=== PATIENT | female | born 1945 | race Caucasian/White ===

== ENCOUNTER 2019-12-12 09:13 | Inpatient (IN) | payer BC, MEDICARE ==
[~2019-12-12 09:13] MED LIST: Acetaminophen 325 MG Tab PO SCH; Bisacodyl 5 MG Tab PO PRN; Cyclobenzaprine 10 MG Tab PO PRN; Lidocaine 1%/Sod Bicarbonate in NS 8.4% 1 ML Syringe IDERM PRN; Magnesium Hydroxide 400 MG/5 ML Susp 30 ML Cup PO PRN; Morphine 2 MG/ML Syringe IVPUSH PRN; Naloxone 0.4 MG/ML SDV IVPUSH PRN; Pregabalin 25 MG Cap PO SCH; Sennosides 8.6 MG Tab PO PRN; Sodium Chloride 0.9% 10 ML Syringe FLUSH PRN; oxyCODONE ER 10 MG TAB.ER PO SCH
[2019-12-12] MEDS ORDERED: EPINEPHrine 1 MG/ML SDV ONE (09:38)
[2019-12-12] MEDS ORDERED: Ropivacaine 0.5% 5 MG/ML 30 ML SDV ONE (09:39)
--- NOTE | 2019-12-12 09:42 | PCM.CONS ---
H&P History of Present Illness - General Date of Service: 12/12/19 Admit Problem/Dx: Admission Diagnosis/Problem Admission Diagnosis/Problem Osteoarthritis of knee Source of Information: Patient, Old Records, Provider, RN Notes Reviewed History Limitations: Reports: No Limitations - History of Present Illness Initial Comments - Free Text/Narative: Lila Fitzgerald is a 74 yo female patient of Dr. Grove who is post-operative day 0 of left TKA. Hospital medicine was consulted for post-operative medical care of the following listed medical conditions. At this time she is resting comfortably in bed. Pain is controlled. She denies any chest pain, shortness of breath, palpitations, nausea, or vomiting. She carries a history of: Rhinitis, lumbar spinal fusion, spinal stenosis, Spinal cord stimulator in place, chronic fatigue, elevated aPTT, Right BBB. She is a former smoker. She is a full code. Her primary care provider is Dr. Doyle. Left Knee Pain Score (Numeric/FACES): 7 - Related Data Allergies/Adverse Reactions: Allergies Allergy/AdvReac Type Severity Reaction Status Date / Time Bleach (Sodium Hypochlorite) Allergy Shortness Verified 12/12/19 14:22 of Breath perfume Allergy Shortness Verified 12/12/19 14:22 of Breath petrolatum,white Allergy Cannot Verified 12/12/19 14:22 Remember enviromental Allergy Difficulty Uncoded 09/14/19 13:39 Breathing new carpet Allergy Rash Uncoded 12/12/19 11:03 Home Medications: Home Meds Calcium Carbonate [Calcium] 600 mg PO DAILY 12/09/19 [History] Cholecalciferol (Vitamin D3) [Vitamin D3] 2,000 unit PO TID 12/09/19 [History] EPINEPHrine [Epipen] 1 injection SUBCUT ASDIRECTED PRN 12/09/19 [History] Folic Acid 1 mg PO DAILY 12/09/19 [History] L.acidoph,Paracasei, B.lactis [Probiotic] 1 cap PO DAILY 12/09/19 [History] Magnesium 400 mg PO DAILY 12/09/19 [History] Multivitamin [Multivitamins] 1 cap PO DAILY 12/09/19 [History] Olopatadine [Pataday 0.2% Ophth Soln] 1 drop EYEBOTH DAILY 12/09/19 [History] Potassium Gluconate [Potassium] 99 mg PO DAILY 12/09/19 [History] Vitamin B Complex 1 cap PO DAILY 12/09/19 [History] cycloSPORINE [Restasis] 1 drop EYEBOTH DAILY 12/09/19 [History] Crisaborole [Eucrisa] 1 applic TP BID PRN 12/12/19 [History] Estriol 0.05% 1 applic VAG MOTH 12/12/19 [History] Past Medical History HEENT History: Reports: Allergic Rhinitis Cardiovascular History: Reports: Hypertension Musculoskeletal History: Reports: Other (See Below) Other Musculoskeletal History: left knee pain Dermatologic History: Reports: Other (See Below) Other Dermatologic History: contact dermatitis - Infectious Disease History Infectious Disease History: Reports: None - Past Surgical History HEENT Surgical History: Reports: Tonsillectomy GI Surgical History: Reports: Colonoscopy Neurological Surgical History: Reports: Spinal Fusion Other Neurological Surgeries/Procedures: spinal stimulator Musculoskeletal Surgical History: Reports: Carpal Tunnel Social & Family History - Tobacco Use Smoking Status *Q: Former Smoker Used Tobacco, but Quit: Yes - Caffeine Use Caffeine Use: Reports: Coffee - Recreational Drug Use Recreational Drug Use: No Drug Use in Last 12 Months: No H&P Review of Systems - Review of Systems: Review Of Systems: See Below General: Reports: No Symptoms. Denies: Fever, Chills HEENT: Reports: No Symptoms. Denies: Headaches, Sore Throat Pulmonary: Reports: No Symptoms. Denies: Shortness of Breath, Wheezing, Pleuritic Chest Pain, Cough, Sputum Cardiovascular: Reports: No Symptoms. Denies: Chest Pain, Palpitations Gastrointestinal: Reports: No Symptoms. Denies: Abdominal Pain, Constipation, Diarrhea, Nausea, Vomiting Genitourinary: Reports: No Symptoms. Denies: Pain Musculoskeletal: Reports: Leg Pain (left ) Skin: Reports: No Symptoms. Denies: Cyanosis Psychiatric: Reports: No Symptoms. Denies: Confusion Neurological: Reports: No Symptoms, Difficulty Walking, Gait Disturbance Hematologic/Lymphatic: Reports: No Symptoms. Denies: Anemia Immunologic: Reports: No Symptoms. Denies: Anaphylaxis Exam - Exam Exam: See Below - Exam Quality Assessment: DVT Prophylaxis General: Alert, Oriented, Cooperative. No: Mild Distress HEENT: Conjunctiva Clear, EACs Clear, Hearing Intact, Mucosa Moist & [place], Nares Patent, Normal Nasal Septum, PERRLA Neck: Supple, Trachea Midline Lungs: Clear to Auscultation, Normal Respiratory Effort Cardiovascular: Regular Rate, Regular Rhythm GI/Abdominal Exam: Normal Bowel Sounds, Soft, Non-Tender, No Organomegaly (Female) Exam: Deferred Rectal (Female) Exam: Deferred Back Exam: Normal Inspection, Full Range of Motion Extremities: Normal Capillary Refill, Leg Pain, Limited Range of Motion, Other ( Bandage in place on left leg. Bandage is dry and intact. Cooling pack in place. ) Peripheral Pulses: 2+: Radial (L), Radial (R), Dorsalis Pedis (L), Dorsalis Pedis (R) Skin: Warm, Dry, Intact Neurological: Cranial Nerves Intact (Grossly) Neuro Extensive - Mental Status: Alert, Oriented x3, Normal Mood/Affect Consult PN Assessment/Plan POD#: 0 Procedures: Procedures ASSAY OF CREATININE (09/16/19) CT MAXILLOFACIAL W/O DYE (02/29/16) MR-STAPH DNA AMP PROBE (12/01/19) MRI CHEST SPINE W/O DYE (04/06/19) MRI LUMBAR SPINE W/O & W/DYE (09/16/19) MRI LUMBAR SPINE W/O DYE (01/09/16) ROUTINE VENIPUNCTURE (09/16/19) TISSUE EXAM BY PATHOLOGIST (05/29/15) (1) S/P total knee arthroplasty SNOMED Code(s): 0165499134056, 320078782, 4746341036256 Code(s): Z96.659 - PRESENCE OF UNSPECIFIED ARTIFICIAL KNEE JOINT Priority: High Current Visit: Yes Qualifiers: Laterality: left Qualified Code(s): Z96.652 - Presence of left artificial knee joint (2) Osteoarthritis SNOMED Code(s): 868248361 Code(s): M19.90 - UNSPECIFIED OSTEOARTHRITIS, UNSPECIFIED SITE Priority: High Current Visit: Yes Qualifiers: Osteoarthritis location: knee Osteoarthritis type: primary Laterality: left Qualified Code(s): M17.12 - Unilateral primary osteoarthritis, left knee (3) Rhinitis SNOMED Code(s): 33677330 Code(s): J31.0 - CHRONIC RHINITIS Priority: Low Current Visit: No Qualifiers: Rhinitis type: unspecified Qualified Code(s): J31.0 - Chronic rhinitis (4) History of lumbar spinal fusion SNOMED Code(s): 45816478748825 Code(s): Z98.1 - ARTHRODESIS STATUS Priority: Low Current Visit: No (5) Spinal stenosis SNOMED Code(s): 86865777 Code(s): M48.00 - SPINAL STENOSIS, SITE UNSPECIFIED Priority: Low Current Visit: Yes Qualifiers: Spinal region: unspecified Qualified Code(s): M48.00 - Spinal stenosis, site unspecified (6) Chronic fatigue SNOMED Code(s): 76212573 Code(s): R53.82 - CHRONIC FATIGUE, UNSPECIFIED Priority: Low Current Visit: No (7) Right bundle branch block SNOMED Code(s): 03809315 Code(s): I45.10 - UNSPECIFIED RIGHT BUNDLE-BRANCH BLOCK Priority: Medium Current Visit: No (8) Former smoker SNOMED Code(s): 6443200 Code(s): Z87.891 - PERSONAL HISTORY OF NICOTINE DEPENDENCE Priority: Low Current Visit: No (9) S/P insertion of spinal cord stimulator SNOMED Code(s): 636304136, 398649608 Code(s): Z96.89 - PRESENCE OF OTHER SPECIFIED FUNCTIONAL IMPLANTS Priority : Low Current Visit: No Problem List Initiated/Reviewed/Updated: Yes Plan: I/P: Acute: S/P left total knee arthroplasty - post-operative day 0 -DVT prophylaxis and pain management per primary care team -PT/OT -IS/RT -Monitor oxygen saturation -Titrate oxygen as needed -Home medications reviewed -Vital signs stable -Monitor labs -Pre-operative Hgb was 13.6 -Pre-operative GFR was 69 -Pre-operative 12-lead EKG shows RBBB Osteoarthritis of left knee -Pain management per primary care team Chronic: Rhinitis Lumbar spinal fusion Spinal stenosis Fatigue elevated aPTT RBBB Spinal cord stimulator in place Plan: CM for discharge planning GI prophylaxis Home medications as indicated Other orders as listed above Routine AM labs She is a full code. Her PCP is Dr. Doyle. Thank you for allowing us to participate in the care of this patient!! Requesting Provider: Dr. Grove Date Consult Requested: 12/12/19 Patient History Reviewed: Yes Admission H&P Reviewed: Yes
[2019-12-12] MEDS ORDERED: Propofol 200 MG/20 ML SDV ONE ×3 (09:51→12:05)
[2019-12-12] MEDS ORDERED: fentaNYL 100 MCG/2 ML SDV ONE ×3 (09:51→12:10)
[2019-12-12] MEDS ORDERED: Ketamine 500 mg/10 ML MDV ONE (09:51)
[2019-12-12] MEDS ORDERED: Midazolam 1 MG/ML 2 ML SDV ONE (09:51)
[2019-12-12] MEDS ORDERED: Lidocaine 1% 4 ML ONE ×2 (09:51→10:55)
[2019-12-12] MEDS ORDERED: Ondansetron 4 MG/2 ML SDV ONE (09:52)
[2019-12-12] MEDS ORDERED: ceFAZolin 1 GM Vial ONE (09:52)
[2019-12-12] MEDS ORDERED: Dexamethasone 4 MG/ML 5 ML MDV ONE (09:52)
[2019-12-12] MEDS ORDERED: Scopolamine 1.5 MG Transdermal Patch TRDERM SCH (10:00)
[2019-12-12] MEDS: Lactated Ringers 1,000 ML IV SCH ×2 (10:10→13:30)
[2019-12-12] MEDS ORDERED: Lidocaine 1% 2 ML ONE (10:10)
[2019-12-12] MEDS ORDERED: Ketorolac 30 MG/ML SDV ONE (10:46)
[2019-12-12] MEDS ORDERED: fentaNYL 100 MCG/2 ML SDV IVPUSH PRN (11:16)
[2019-12-12] MEDS ORDERED: Ondansetron 4 MG/2 ML SDV IVPUSH PRN (11:16)
[2019-12-12] MEDS ORDERED: HYDROmorphone 0.5 MG/0.5 ML Syringe IVPUSH PRN (11:16)
--- NOTE | 2019-12-12 11:21 | PCM.PREANE ---
Preanesthetic Assessment - Procedure Proposed Procedure: Left Total Knee Replacement - Anesthesia/Transfusion/Family Hx Anesthesia History: Prior Anesthesia Without Reaction Family History of Anesthesia Reaction: No - Review of Systems General: No Symptoms Pulmonary: No Symptoms Cardiovascular: No Symptoms Gastrointestinal: No Symptoms Neurological: Pre-Existing Deficit (Chronic Back Pain. Spinal Fusion with spinal cord stimulator in place. Turned off for procedure. ), Other (Spinal Fustion L2-S1) Other: Reports: None - Physical Assessment NPO Status Date: 12/11/19 NPO Status Time: 21:00 Vital Signs: Last Vital Signs Temp 36.8 C 12/12/19 09:15 Pulse 82 12/12/19 10:35 Resp 16 12/12/19 10:35 BP 118/57 L 12/12/19 10:35 Pulse Ox 98 12/12/19 10:35 Height: 1.68 m Weight: 69.4 kg ASA Class: 2 Mental Status: Alert & Oriented x3 Airway Class: Mallampati = 2 Dentition: Reports: Normal Dentition Thyro-Mental Finger Breadths: 2 Mouth Opening Finger Breadths: 2 ROM/Head Extension: Full Lungs: Clear to Auscultation, Normal Respiratory Effort Cardiovascular: Regular Rate, Regular Rhythm - Lab Values: Laboratory Last Values SARS Virus RNA (PCR) Negative (NEGATIVE) 12/08/19 09:38 - Allergies Allergies/Adverse Reactions: Allergies Allergy/AdvReac Type Severity Reaction Status Date / Time Bleach (Sodium Hypochlorite) Allergy Shortness Verified 12/12/19 11:03 of Breath perfume Allergy Shortness Verified 12/12/19 11:03 of Breath petrolatum,white Allergy Cannot Verified 12/12/19 11:03 Remember enviromental Allergy Difficulty Uncoded 09/14/19 13:39 Breathing new carpet Allergy Rash Uncoded 12/12/19 11:03 - Acknowledgements Anesthesia Type Planned: General Anesthesia, Regional Block (Adductor Canal Block) Pt an Appropriate Candidate for the Planned Anesthesia: Yes Alternatives and Risks of Anesthesia Discussed w Pt/Guardian: Yes Pt/Guardian Understands and Agrees with Anesthesia Plan: Yes PreAnesthesia Questionnaire HEENT History: Reports: Allergic Rhinitis Cardiovascular History: Reports: Hypertension Musculoskeletal History: Reports: Other (See Below) Other Musculoskeletal History: left knee pain Dermatologic History: Reports: Other (See Below) Other Dermatologic History: contact dermatitis - Infectious Disease History Infectious Disease History: Reports: None - Past Surgical History HEENT Surgical History: Reports: Tonsillectomy GI Surgical History: Reports: Colonoscopy Neurological Surgical History: Reports: Spinal Fusion Other Neurological Surgeries/Procedures: spinal stimulator Musculoskeletal Surgical History: Reports: Carpal Tunnel - SUBSTANCE USE Smoking Status *Q: Former Smoker Tobacco Use Within Last Twelve Months: No Recreational Drug Use History: No - HOME MEDS Home Medications: Home Meds Calcium Carbonate [Calcium] 600 mg PO DAILY 12/09/19 [History] Cholecalciferol (Vitamin D3) [Vitamin D3] 2,000 unit PO TID 12/09/19 [History] EPINEPHrine [Epipen] 1 injection SUBCUT ASDIRECTED PRN 12/09/19 [History] Folic Acid 1 mg PO DAILY 12/09/19 [History] L.acidoph,Paracasei, B.lactis [Probiotic] 1 cap PO DAILY 12/09/19 [History] Magnesium 400 mg PO DAILY 12/09/19 [History] Multivitamin [Multivitamins] 1 cap PO DAILY 12/09/19 [History] Olopatadine [Pataday 0.2% Ophth Soln] 1 drop EYEBOTH DAILY 12/09/19 [History] Potassium Gluconate [Potassium] 99 mg PO DAILY 12/09/19 [History] Vitamin B Complex 1 cap PO DAILY 12/09/19 [History] cycloSPORINE [Restasis] 1 drop EYEBOTH DAILY 12/09/19 [History] Crisaborole [Eucrisa] 1 applic TP BID PRN 12/12/19 [History] Estriol 0.05% 1 applic VAG MOTH 12/12/19 [History] - CURRENT (IN HOUSE) MEDS Current Meds: Current Medications Acetaminophen (Tylenol) 975 mg PO ONETIME [facility] Stop: 12/12/19 14:00 Last Admin: 12/12/19 10:07 Dose: 975 mg Bisacodyl (Dulcolax) 5 mg PO DAILY PRN PRN Reason: Constipation Morphine Sulfate 8 mg/Epinephrine HCl 0.3 mg/Cefuroxime Sodium 750 mg/Ketorolac Tromethamine 30 mg/Sodium Chloride 7.9 ml 0 mg .XX ASDIRECTED PRN PRN Reason: Pain Stop: 12/12/19 12:00 Cyclobenzaprine HCl (Flexeril) 5 mg PO TID PRN PRN Reason: Spasms Docusate Sodium (Colace) 100 mg PO BID [facility] Famotidine (Pepcid) 20 mg PO Q12H [facility] Lactated Ringer's (Ringers, Lactated) 1,000 mls @ 125 mls/hr IV ASDIRECTED [facility] Stop: 12/12/19 23:00 Last Admin: 12/12/19 10:10 Dose: 125 mls/hr Cefazolin Sodium/Dextrose 2 gm (/ Premix) 50 mls @ 100 mls/hr IV Q8H [facility] Stop: 12/13/19 10:29 Ketorolac Tromethamine (Toradol) 15 mg IVPUSH Q6H PRN PRN Reason: Pain Lidocaine/Sodium Bicarbonate (Buffered Lidocaine 1% In Ns 8.4%) 0.25 ml IDERM ONETIME PRN PRN Reason: Prior to IV Start Stop: 12/12/19 18:00 Last Admin: 12/12/19 10:10 Dose: 0.25 ml Magnesium Hydroxide (Milk Of Magnesia) 30 ml PO BID PRN PRN Reason: Constipation Morphine Sulfate (Morphine) 2 mg IVPUSH Q2H PRN PRN Reason: Breakthrough Pain Naloxone HCl (Narcan) 0.1 mg IVPUSH Q5M PRN PRN Reason: Oversedation Ondansetron HCl (Zofran) 4 mg IVPUSH Q6H PRN PRN Reason: Nausea/Vomiting Oxycodone HCl (Oxycontin) 10 mg PO ONETIME [facility] Stop: 12/12/19 14:00 Last Admin: 12/12/19 10:07 Dose: 10 mg Oxycodone/Acetaminophen (Percocet 325-5 Mg) 1 - 2 tab PO Q4H PRN PRN Reason: Pain Pregabalin (Lyrica) 50 mg PO ONETIME [facility] Stop: 12/12/19 14:00 Last Admin: 12/12/19 10:07 Dose: 50 mg Rivaroxaban (Xarelto) 10 mg PO DAILY [facility] Scopolamine (Transderm-Scop) 1.5 mg TRDERM ONETIME [facility] Senna (Senna) 8.6 mg PO BID PRN PRN Reason: Constipation Sodium Chloride (Saline Flush) 10 ml FLUSH ASDIRECTED PRN PRN Reason: Keep Vein Open Stop: 12/12/19 18:00 Discontinued Medications Bupivacaine HCl (Sensorcaine-Mpf 0.25%) Confirm Administered Dose 30 ml .ROUTE .[facility] Stop: 12/12/19 09:33 Cefazolin Sodium (Ancef) Confirm Administered Dose 2 gm .ROUTE .[facility] Stop: 12/12/19 09:33 Cefazolin Sodium (Ancef) Confirm Administered Dose 2 gm .ROUTE .[facility] Stop: 12/12/19 09:53 Dexamethasone (Dexamethasone) Confirm Administered Dose 20 mg .[address] .[facility] ONE Stop: 12/12/19 09:53 Epinephrine HCl (Adrenalin) Confirm Administered Dose 1 mg .R[address]TE .[facility] ONE Stop: 12/12/19 09:39 Fentanyl (Sublimaze) Confirm Administered Dose 100 mcg .[address] .[facility] ONE Stop: 12/12/19 09:52 Lidocaine HCl (Xylocaine-Mpf 1%) Confirm Administered Dose 4 mls @ as directed .ROUTE .[facility] ONE Stop: 12/12/19 09:52 Lidocaine HCl (Xylocaine-Mpf 1%) Confirm Administered Dose 2 mls @ as directed .ROUTE .[facility] ONE Stop: 12/12/19 10:11 Lidocaine HCl (Xylocaine-Mpf 1%) Confirm Administered Dose 4 mls @ as directed .ROUTE .[facility] ONE Stop: 12/12/19 10:56 Iodine (Iodine 2% Mild Tincture) Confirm Administered Dose 30 ml .ROUTE .[facility] ONE Stop: 12/12/19 09:33 Ketamine HCl (Ketalar) Confirm Administered Dose 500 mg .[address] .[facility] ONE Stop: 12/12/19 09:52 Ketorolac Tromethamine (Toradol) Confirm Administered Dose 30 mg .ROUTE .[facility] ONE Stop: 12/12/19 10:47 Midazolam HCl (Versed 1 Mg/Ml) Confirm Administered Dose 2 mg .ROUTE .[facility] ONE Stop: 12/12/19 09:52 Ondansetron HCl (Zofran) Confirm Administered Dose 4 mg .ROUTE .[facility] ONE Stop: 12/12/19 09:53 Propofol (Diprivan 20 Ml) Confirm Administered Dose 600 mg .[address] .[facility] ONE Stop: 12/12/19 09:52 Ropivacaine (Naropin 0.5%) Confirm Administered Dose 30 ml .ROUTE .[facility] ONE Stop: 12/12/19 09:40 Tranexamic Acid (Cyklokapron) Confirm Administered Dose 1,000 mg .ROUTE .[facility] ONE Stop: 12/12/19 09:33 Vancomycin HCl (Vancomycin) Confirm Administered Dose 1 gm .ROUTE .[facility] ONE Stop: 12/12/19 09:33
[2019-12-12] MEDS ORDERED: HYDROmorphone 1 MG/ML Syringe ONE ×2 (11:42→12:32)
[2019-12-12] MEDS: Iodine/Sodium Iodide 2% Tincture 30 ML Bottle ONE ×2 (11:51→12:00)
[2019-12-12] MEDS: ceFAZolin 1 GM Vial ONE ×2 (11:52→12:02)
[2019-12-12] MEDS: Bupivacaine 0.25% 10 ML SDV ONE ×3 (11:52→12:06)
[2019-12-12] MEDS: Vancomycin 1 GM SDV ONE ×4 (11:53→12:09)
[2019-12-12] MEDS: Morphine 8 MG, EPINEPHrine 0.3 MG, Cefuroxime 750 MG, Ketorolac 30 MG, Sodium Chloride ... PRN ×15 (11:53→12:06)
--- NOTE | 2019-12-12 12:50 | PCM.POSTAN ---
POST ANESTHESIA ASSESSMENT - MENTAL STATUS Mental Status: Oriented, Other (Drowsy) - VITAL SIGNS Vital Signs: Last Vital Signs Temp 36.8 C 12/12/19 09:15 Pulse 82 12/12/19 10:35 Resp 16 12/12/19 10:35 BP 118/57 L 12/12/19 10:35 Pulse Ox 98 12/12/19 10:35 1242 147/74 100 00 97.1F 94% - RESPIRATORY Respiratory Status: Respiratory Rate WNL, Airway Patent, O2 Saturation Stable, Supplemental Oxygen - CARDIOVASCULAR CV Status: Pulse Rate WNL, Blood Pressure Stable - GASTROINTESTINAL GI Status: No Symptoms - PAIN Pain Score: 0 - POST OP HYDRATION Hydration Status: Adequate & Stable
--- NOTE | 2019-12-12 12:51 | PCM.SN.2 ---
- Free Text/Narrative Note: Left selective femoral nerve block at the adductor canal for post-procedure pain control under US guidance requested by Dr. Grove. Date: 12/12/2019 Time Out: 1016 Start: 1022 End: 1031 Chart reviewed. Consent signed. Questions answered. Appropriate monitors applied. Time out performed. Left mid-shaft femur identified with ultrasound, scanning medially of femur, the femoral artery in the adductor canal visualized , and the femoral nerve located laterally to the artery. The skin was prepped lateral to the ultrasound probe with chlorahexadine times two. The 21ga 4 insulated block needle was inserted under direct ultrasound guidance into the adductor canal. 25mL of 0.5% ropivacaine with 1:200,000 epinephrine was injected circumferentially around the nerve with intermittent negative aspiration noted. Patient tolerated the procedure well. Sterile technique noted along with sterile gloves, mask, and sterile probe cover. See picture on progress note and vital signs on nurses notes. Block completed in PACU. Shonda Gonzalez CRNA
[2019-12-12] MEDS ORDERED: Lactated Ringers 1,000 ML ONE (13:04)
--- NOTE | 2019-12-12 13:44 | CR ---
Left knee: AP and lateral views left knee were obtained. Comparison: No previous knee exam. Knee prosthesis is seen. Components are aligned. Underlying bony structures are intact. Soft tissue air is noted from the surgical procedure. Impression: 1. Satisfactory postop radiographic appearance of recently placed left knee prosthesis. Diagnostic code #2 This report was dictated in MDT
[2019-12-12] MEDS ORDERED: EPINEPHRINE SUBCUT PRN (14:05)
[2019-12-12] MEDS ORDERED: CRISABOROLE TOP PRN (14:05)
[2019-12-12] MEDS: Cholecalciferol (Vitamin D3) 25 MCG Tab PO SCH ×2 (15:58→20:35)
[2019-12-12] MEDS ORDERED: Ketorolac 15 MG/ML SDV IVPUSH PRN (16:45)
[2019-12-12] MEDS: ceFAZolin 2 GM in Premix Bag 1 BAG IV SCH (17:25)
[2019-12-12] MEDS: Ondansetron 4 MG/2 ML SDV IVPUSH PRN (18:12)
[2019-12-12] MEDS: Famotidine 20 MG Tab PO SCH (20:34)
[2019-12-12] MEDS: Docusate Sodium 100 MG Cap PO SCH (20:34)
[2019-12-12] MEDS ORDERED: Magnesium Oxide 400 MG Tab PO SCH (21:00)
[2019-12-12] MEDS ORDERED: Calcium Carbonate 600 MG Tab PO SCH (21:00)
[2019-12-13] MEDS: ceFAZolin 2 GM in Premix Bag 1 BAG IV SCH ×2 (01:51→09:07)
[2019-12-13] MEDS: Acetaminophen/oxyCODONE 325-5 MG Tab PO PRN ×2 (02:05→08:58)
[2019-12-13] MEDS: Ondansetron 4 MG/2 ML SDV IVPUSH PRN ×2 (02:06→08:58)
--- NOTE | 2019-12-13 08:00 | PCM.CONSN ---
- General Info Date of Service: 12/13/19 Admission Dx/Problem (Free Text): Admission Diagnosis/Problem Admission Diagnosis/Problem Osteoarthritis of knee Functional Status: Reports: Pain Controlled, Tolerating Diet, Ambulating, Urinating, Incentive Spirometry. Denies: New Symptoms - Review of Systems General: Reports: No Symptoms. Denies: Fever, Weakness, Fatigue, Malaise, Chills HEENT: Reports: No Symptoms. Denies: Headaches, Sore Throat Pulmonary: Reports: No Symptoms. Denies: Shortness of Breath, Pleuritic Chest Pain, Cough, Sputum, Wheezing Cardiovascular: Reports: No Symptoms. Denies: Chest Pain, Palpitations, Dyspnea on Exertion Gastrointestinal: Reports: No Symptoms. Denies: Abdominal Pain, Constipation, Diarrhea, Nausea, Vomiting Genitourinary: Reports: No Symptoms. Denies: Pain Musculoskeletal: Reports: Leg Pain Skin: Reports: No Symptoms. Denies: Cyanosis Neurological: Reports: Difficulty Walking, Gait Disturbance. Denies: Confusion Psychiatric: Reports: No Symptoms - Patient Data Vitals - Most Recent: Last Vital Signs Temp 97.9 F 12/13/19 04:38 Pulse 74 12/13/19 04:38 Resp 18 12/13/19 04:38 BP 98/62 12/13/19 04:38 Pulse Ox 94 L 12/13/19 04:38 Weight - Most Recent: 153 lb 3.2 oz I&O - Last 24 Hours: Intake & Output 12/12/19 12/13/19 12/13/19 22:59 06:59 14:59 Intake Total 1550 200 Output Total 1140 900 Balance 410 -700 Lab Results Last 24 Hours: Laboratory Results - last 24 hr 12/13/19 12/13/19 Range/Units 04:38 04:38 WBC 9.06 (3.98-10.04) K/mm3 RBC 3.51 L (3.98-5.22) M/mm3 Hgb 10.9 L (11.2-15.7) gm/dl Hct 34.1 (34.1-44.9) % MCV 97.2 H (79.4-94.8) fl MCH 31.1 (25.6-32.2) pg MCHC 32.0 L (32.2-35.5) g/dl RDW Std Deviation 43.7 (36.4-46.3) fL Plt Count 294 (182-369) K/mm3 MPV 8.8 L (9.4-12.3) fl Sodium 135 L (136-145) mEq/L Potassium 3.8 (3.5-5.1) mEq/L Chloride 101 (98-107) mEq/L Carbon Dioxide 30 (21-32) mEq/L Anion Gap 7.8 (5-15) BUN 11 (7-18) mg/dL Creatinine 0.8 (0.55-1.02) mg/dL Est Cr Clr Drug Dosing 59.51 mL/min Estimated GFR (MDRD) > 60 (>60) mL/min BUN/Creatinine Ratio 13.8 L (14-18) Glucose 109 (83-115) mg/dL Calcium 8.3 L (8.5-10.1) mg/dL Total Bilirubin 0.6 (0.2-1.0) mg/dL AST 24 (15-37) U/L ALT 22 (14-59) U/L Alkaline Phosphatase 42 L (46-116) U/L Total Protein 5.5 L (6.4-8.2) g/dl Albumin 2.8 L (3.4-5.0) g/dl Globulin 2.7 gm/dL Albumin/Globulin Ratio 1.0 (1-2) Med Orders - Current: Current Medications Bisacodyl (Dulcolax) 5 mg PO DAILY PRN PRN Reason: Constipation Calcium Carbonate/Glycine (Calcium Carbonate) 600 mg PO BEDTIME [facility] Last Admin: 12/12/19 20:34 Dose: 600 mg Cholecalciferol (Vitamin D3) 50 mcg PO TID [facility] Last Admin: 12/12/19 20:35 Dose: 50 mcg Cyclobenzaprine HCl (Flexeril) 5 mg PO TID PRN PRN Reason: Spasms Docusate Sodium (Colace) 100 mg PO BID [facility] Last Admin: 12/12/19 20:34 Dose: 100 mg Famotidine (Pepcid) 20 mg PO Q12H [facility] Last Admin: 12/12/19 20:34 Dose: 20 mg Folic Acid (Folic Acid) 1 mg PO DAILY [facility] Cefazolin Sodium/Dextrose 2 gm (/ Premix) 50 mls @ 100 mls/hr IV Q8H [facility] Stop: 12/13/19 10:29 Last Admin: 12/13/19 01:51 Dose: 100 mls/hr Ketorolac Tromethamine (Toradol) 15 mg IVPUSH Q6H PRN PRN Reason: Pain Last Admin: 12/12/19 18:14 Dose: 15 mg Magnesium Hydroxide (Milk Of Magnesia) 30 ml PO BID PRN PRN Reason: Constipation Magnesium Oxide (Magnesium Oxide) 400 mg PO BEDTIME [facility] Last Admin: 12/12/19 20:35 Dose: 400 mg Miscellaneous Information (Remove Patch) 0 ea TRDERM ONETIME ONE Stop: 12/15/19 10:01 Morphine Sulfate (Morphine) 2 mg IVPUSH Q2H PRN PRN Reason: Breakthrough Pain Multivitamins (Thera) 1 each PO DAILY [facility] Naloxone HCl (Narcan) 0.1 mg IVPUSH Q5M PRN PRN Reason: Oversedation Ondansetron HCl (Zofran) 4 mg IVPUSH Q6H PRN PRN Reason: Nausea/Vomiting Last Admin: 12/13/19 02:06 Dose: 4 mg Oxycodone/Acetaminophen (Percocet 325-5 Mg) 1 - 2 tab PO Q4H PRN PRN Reason: Pain Last Admin: 12/13/19 02:05 Dose: 1 tab Crisaborole [Eucrisa (] Ointment) 0 each TOP BID PRN PRN Reason: Rash Cyclosporine ( (Restasis)) 0 each EYEBOTH DAILY [facility] Olopatadine (Pataday ()) 0 each EYEBOTH DAILY [facility] Rivaroxaban (Xarelto) 10 mg PO DAILY [facility] Saccharomyces Boulardii (Florastor) 250 mg PO DAILY [facility] Senna (Senna) 8.6 mg PO BID PRN PRN Reason: Constipation Vitamin B Complex/Vitamin C (Super B With Vitamin C) 1 cap PO DAILY [facility] Discontinued Medications Acetaminophen (Tylenol) 975 mg PO ONETIME [facility] Stop: 12/12/19 14:00 Last Admin: 12/12/19 10:07 Dose: 975 mg Bupivacaine HCl (Sensorcaine-Mpf 0.25%) Confirm Administered Dose 30 ml .ROUTE .STK-MED ONE Stop: 12/12/19 09:33 Last Admin: 12/12/19 12:06 Dose: 30 ml Cefazolin Sodium (Ancef) Confirm Administered Dose 2 gm .ROUTE .STK-MED ONE Stop: 12/12/19 09:33 Last Admin: 12/12/19 12:02 Dose: 2 gm Cefazolin Sodium (Ancef) Confirm Administered Dose 2 gm .ROUTE .STK-MED ONE Stop: 12/12/19 09:53 Morphine Sulfate 8 mg/Epinephrine HCl 0.3 mg/Cefuroxime Sodium 750 mg/Ketorolac Tromethamine 30 mg/Sodium Chloride 7.9 ml 0 mg .XX ASDIRECTED PRN PRN Reason: Pain Stop: 12/12/19 12:00 Last Admin: 12/12/19 12:06 Dose: 788.3 mg Dexamethasone (Dexamethasone) Confirm Administered Dose 20 mg .ROUTE .STK-MED ONE Stop: 12/12/19 09:53 Epinephrine HCl (Adrenalin) Confirm Administered Dose 1 mg .ROUTE .STK-MED ONE Stop: 12/12/19 09:39 Fentanyl (Sublimaze) Confirm Administered Dose 100 mcg .ROUTE .STK-MED ONE Stop: 12/12/19 09:52 Fentanyl (Sublimaze) 50 mcg IVPUSH Q5M PRN PRN Reason: Pain Stop: 12/12/19 13:00 Fentanyl (Sublimaze) Confirm Administered Dose 100 mcg .ROUTE .STK-MED ONE Stop: 12/12/19 11:32 Fentanyl (Sublimaze) Confirm Administered Dose 100 mcg .ROUTE .STK-MED ONE Stop: 12/12/19 12:11 Hydromorphone HCl (Dilaudid) 0.5 mg IVPUSH Q10M PRN PRN Reason: Pain (severe 7-10) Stop: 12/12/19 13:00 Hydromorphone HCl (Dilaudid) Confirm Administered Dose 1 mg .ROUTE .STK-MED ONE Stop: 12/12/19 11:43 Hydromorphone HCl (Dilaudid) Confirm Administered Dose 1 mg .ROUTE .STK-MED ONE Stop: 12/12/19 12:33 Lactated Ringer's (Ringers, Lactated) 1,000 mls @ 125 mls/hr IV ASDIRECTED [facility] Stop: 12/12/19 23:00 Last Admin: 12/12/19 13:30 Dose: 125 mls/hr Lidocaine HCl (Xylocaine-Mpf 1%) Confirm Administered Dose 4 mls @ as directed .ROUTE .STK-MED ONE Stop: 12/12/19 09:52 Lidocaine HCl (Xylocaine-Mpf 1%) Confirm Administered Dose 2 mls @ as directed .ROUTE .[facility] ONE Stop: 12/12/19 10:11 Lidocaine HCl (Xylocaine-Mpf 1%) Confirm Administered Dose 4 mls @ as directed .ROUTE .[facility] ONE Stop: 12/12/19 10:56 Lactated Ringer's (Ringers, Lactated) Confirm Administered Dose 1,000 mls @ as directed .ROUTE .[facility] ONE Stop: 12/12/19 13:05 Iodine (Iodine 2% Mild Tincture) Confirm Administered Dose 30 ml .ROUTE .[facility] ONE Stop: 12/12/19 09:33 Last Admin: 12/12/19 12:00 Dose: 18 ml Ketamine HCl (Ketalar) Confirm Administered Dose 500 mg .ROUTE .[facility] ONE Stop: 12/12/19 09:52 Ketorolac Tromethamine (Toradol) Confirm Administered Dose 30 mg .ROUTE .[facility] ONE Stop: 12/12/19 10:47 Lidocaine/Sodium Bicarbonate (Buffered Lidocaine 1% In Ns 8.4%) 0.25 ml IDERM ONETIME PRN PRN Reason: Prior to IV Start Stop: 12/12/19 18:00 Last Admin: 12/12/19 10:10 Dose: 0.25 ml Midazolam HCl (Versed 1 Mg/Ml) Confirm Administered Dose 2 mg .ROUTE .[facility] ONE Stop: 12/12/19 09:52 Non-Formulary Medication (Epinephrine [Epipen]) 1 injection SUBCUT ASDIRECTED PRN PRN Reason: allergic reaction Non-Formulary Medication (Potassium Gluconate [Potassium]) 99 mg PO DAILY [facility] Ondansetron HCl (Zofran) Confirm Administered Dose 4 mg .ROUTE .[facility] ONE Stop: 12/12/19 09:53 Ondansetron HCl (Zofran) 4 mg IVPUSH ONETIME PRN PRN Reason: Nausea/Vomiting Stop: 12/12/19 13:00 Oxycodone HCl (Oxycontin) 10 mg PO ONETIME [facility] Stop: 12/12/19 14:00 Last Admin: 12/12/19 10:07 Dose: 10 mg Pregabalin (Lyrica) 50 mg PO ONETIME [facility] Stop: 12/12/19 14:00 Last Admin: 12/12/19 10:07 Dose: 50 mg Propofol (Diprivan 20 Ml) Confirm Administered Dose 600 mg .ROUTE .STK-MED ONE Stop: 12/12/19 09:52 Propofol (Diprivan 20 Ml) Confirm Administered Dose 600 mg .ROUTE .STK-MED ONE Stop: 12/12/19 11:23 Propofol (Diprivan 20 Ml) Confirm Administered Dose 200 mg .ROUTE .STK-MED ONE Stop: 12/12/19 12:06 Ropivacaine (Naropin 0.5%) Confirm Administered Dose 30 ml .ROUTE .STK-MED ONE Stop: 12/12/19 09:40 Scopolamine (Transderm-Scop) 1.5 mg TRDERM ONETIME [facility] Last Admin: 12/12/19 10:35 Dose: 1.5 mg Sodium Chloride (Saline Flush) 10 ml FLUSH ASDIRECTED PRN PRN Reason: Keep Vein Open Stop: 12/12/19 18:00 Tranexamic Acid (Cyklokapron) Confirm Administered Dose 1,000 mg .ROUTE .STK- MED ONE Stop: 12/12/19 09:33 Last Admin: 12/12/19 12:13 Dose: 1,000 mg Vancomycin HCl (Vancomycin) Confirm Administered Dose 1 gm .ROUTE .STK-MED ONE Stop: 12/12/19 09:33 Last Admin: 12/12/19 12:09 Dose: 1 gm - Exam Quality Assessment: DVT Prophylaxis. No: Supplemental Oxygen, Urine Catheter General: Alert, Oriented, Cooperative, No Acute Distress HEENT: Pupils Equal, Pupils Reactive, Mucous Membr. Moist/[place] Neck: Supple, Trachea Midline Lungs: Clear to Auscultation, Normal Respiratory Effort Cardiovascular: Regular Rate, Regular Rhythm GI/Abdominal Exam: Normal Bowel Sounds, Soft, Non-Tender, No Distention (Female) Exam: Deferred Back Exam: Normal Inspection, Full Range of Motion Extremities: Non-Tender, Normal Capillary Refill, Leg Pain, Limited Range of Motion (Bandage in place on left leg. Bandage is dry and intact. Cooling pack in place. ), Other Peripheral Pulses: 2+: Radial (L), Radial (R), Dorsalis Pedis (L), Dorsalis Pedis (R) Skin: Warm, Dry, Intact Wound/Incisions: Dressing Dry and Intact, No Drainage Neurological: No New Focal Deficit Psy/Mental Status: Alert, Normal Affect, Normal Mood Sepsis Event Note - Evaluation Sepsis Screening Result: No Definite Risk - Focused Exam Vital Signs: Vital Signs Temp Pulse Resp BP Pulse Ox 12/13/19 04:38 97.9 F 74 18 98/62 94 L 12/13/19 02:16 97.7 F 62 18 113/67 93 L 12/12/19 20:55 98.1 F 82 18 113/62 93 L Date Exam was Performed: 12/13/19 Time Exam was Performed: 09:00 Consult PN Assessment/Plan POD#: 1 Procedures: Procedures ASSAY OF CREATININE (09/16/19) CT MAXILLOFACIAL W/O DYE (02/29/16) MR-STAPH DNA AMP PROBE (12/01/19) MRI CHEST SPINE W/O DYE (04/06/19) MRI LUMBAR SPINE W/O & W/DYE (09/16/19) MRI LUMBAR SPINE W/O DYE (01/09/16) ROUTINE VENIPUNCTURE (09/16/19) TISSUE EXAM BY PATHOLOGIST (05/29/15) (1) S/P total knee arthroplasty SNOMED Code(s): 1399028925956, 386953801, 5068529698201 Code(s): Z96.659 - PRESENCE OF UNSPECIFIED ARTIFICIAL KNEE JOINT Priority: High Current Visit: Yes Qualifiers: Laterality: left Qualified Code(s): Z96.652 - Presence of left artificial knee joint (2) Osteoarthritis SNOMED Code(s): 389901663 Code(s): M19.90 - UNSPECIFIED OSTEOARTHRITIS, UNSPECIFIED SITE Priority: High Current Visit: Yes Qualifiers: Osteoarthritis location: knee Osteoarthritis type: primary Laterality: left Qualified Code(s): M17.12 - Unilateral primary osteoarthritis, left knee (3) Rhinitis SNOMED Code(s): 74300760 Code(s): J31.0 - CHRONIC RHINITIS Priority: Low Current Visit: No Qualifiers: Rhinitis type: unspecified Qualified Code(s): J31.0 - Chronic rhinitis (4) History of lumbar spinal fusion SNOMED Code(s): 49475625863415 Code(s): Z98.1 - ARTHRODESIS STATUS Priority: Low Current Visit: No (5) Spinal stenosis SNOMED Code(s): 06804471 Code(s): M48.00 - SPINAL STENOSIS, SITE UNSPECIFIED Priority: Low Current Visit: Yes Qualifiers: Spinal region: unspecified Qualified Code(s): M48.00 - Spinal stenosis, site unspecified (6) Chronic fatigue SNOMED Code(s): 01492542 Code(s): R53.82 - CHRONIC FATIGUE, UNSPECIFIED Priority: Low Current Visit: No (7) Right bundle branch block SNOMED Code(s): 85062862 Code(s): I45.10 - UNSPECIFIED RIGHT BUNDLE-BRANCH BLOCK Priority: Medium Current Visit: No (8) Former smoker SNOMED Code(s): 8911909 Code(s): Z87.891 - PERSONAL HISTORY OF NICOTINE DEPENDENCE Priority: Low Current Visit: No (9) S/P insertion of spinal cord stimulator SNOMED Code(s): 343969256, 300742471 Code(s): Z96.89 - PRESENCE OF OTHER SPECIFIED FUNCTIONAL IMPLANTS Priority : Low Current Visit: No Problem List Initiated/Reviewed/Updated: Yes Plan: I/P: Acute: S/P left total knee arthroplasty - post-operative day 1 -DVT prophylaxis and pain management per primary care team -PT/OT -IS/RT -Monitor oxygen saturation -Titrate oxygen as needed -Home medications reviewed -Vital signs stable -Monitor labs -Pre-operative Hgb was 13.6; Now 10.9 -Pre-operative GFR was 69; Now >60 -Pre-operative 12-lead EKG shows RBBB Osteoarthritis of left knee -Pain management per primary care team Chronic: Rhinitis Lumbar spinal fusion Spinal stenosis Fatigue elevated aPTT RBBB Spinal cord stimulator in place Plan: CM for discharge planning GI prophylaxis Home medications as indicated Other orders as listed above Routine AM labs She is a full code. Her PCP is Dr. Doyle. From a hospitalist standpoint Lila is doing well. She has been up ambulating and working with therapies. She is off of oxygen and has urinated. Her labs and vital signs remain stable. Her pain is controlled. She will be cleared for discharge pending primary team and PT/OT agreement. Thank you for allowing us to participate in the care of this patient!!
--- NOTE | 2019-12-13 08:11 | PCM48HPAN ---
Post Anesthesia Note - EVALUATION WITHIN 48HRS OF ANESTHETIC Vital Signs in Normal Range: Yes Patient Participated in Evaluation: Yes Respiratory Function Stable: Yes Airway Patent: Yes Cardiovascular Function Stable: Yes Hydration Status Stable: Yes Pain Control Satisfactory: Yes Nausea and Vomiting Control Satisfactory: Yes Mental Status Recovered: Yes Vital Signs: Last Vital Signs Temp 36.6 C 12/13/19 04:38 Pulse 74 12/13/19 04:38 Resp 18 12/13/19 04:38 BP 98/62 12/13/19 04:38 Pulse Ox 94 L 12/13/19 04:38
--- NOTE | 2019-12-13 08:35 | PCM.SURGPN ---
- General Info Date of Service: 12/13/19 POD#: 1 Functional Status: Reports: Pain Controlled, Tolerating Diet, Ambulating, Urinating, Incentive Spirometry, Other (The pt states she noted no PONV with use of Zofran. She reports she is doing "good".) - Patient Data Vitals - Most Recent: Last Vital Signs Temp 97.9 F 12/13/19 04:38 Pulse 74 12/13/19 04:38 Resp 18 12/13/19 04:38 BP 98/62 12/13/19 04:38 Pulse Ox 94 L 12/13/19 04:38 Weight - Most Recent: 153 lb 3.2 oz I&O - Last 24 Hours: Intake & Output 12/12/19 12/13/19 12/13/19 22:59 06:59 14:59 Intake Total 1550 200 Output Total 1140 900 Balance 410 -700 Lab Results Last 24 Hrs: Laboratory Results - last 24 hr 12/13/19 12/13/19 Range/Units 04:38 04:38 WBC 9.06 (3.98-10.04) K/mm3 RBC 3.51 L (3.98-5.22) M/mm3 Hgb 10.9 L (11.2-15.7) gm/dl Hct 34.1 (34.1-44.9) % MCV 97.2 H (79.4-94.8) fl MCH 31.1 (25.6-32.2) pg MCHC 32.0 L (32.2-35.5) g/dl RDW Std Deviation 43.7 (36.4-46.3) fL Plt Count 294 (182-369) K/mm3 MPV 8.8 L (9.4-12.3) fl Sodium 135 L (136-145) mEq/L Potassium 3.8 (3.5-5.1) mEq/L Chloride 101 (98-107) mEq/L Carbon Dioxide 30 (21-32) mEq/L Anion Gap 7.8 (5-15) BUN 11 (7-18) mg/dL Creatinine 0.8 (0.55-1.02) mg/dL Est Cr Clr Drug Dosing 59.51 mL/min Estimated GFR (MDRD) > 60 (>60) mL/min BUN/Creatinine Ratio 13.8 L (14-18) Glucose 109 (83-115) mg/dL Calcium 8.3 L (8.5-10.1) mg/dL Total Bilirubin 0.6 (0.2-1.0) mg/dL AST 24 (15-37) U/L ALT 22 (14-59) U/L Alkaline Phosphatase 42 L (46-116) U/L Total Protein 5.5 L (6.4-8.2) g/dl Albumin 2.8 L (3.4-5.0) g/dl Globulin 2.7 gm/dL Albumin/Globulin Ratio 1.0 (1-2) Med Orders - Current: Current Medications Bisacodyl (Dulcolax) 5 mg PO DAILY PRN PRN Reason: Constipation Calcium Carbonate/Glycine (Calcium Carbonate) 600 mg PO BEDTIME [facility] Last Admin: 12/12/19 20:34 Dose: 600 mg Cholecalciferol (Vitamin D3) 50 mcg PO TID [facility] Last Admin: 12/12/19 20:35 Dose: 50 mcg Cyclobenzaprine HCl (Flexeril) 5 mg PO TID PRN PRN Reason: Spasms Docusate Sodium (Colace) 100 mg PO BID [facility] Last Admin: 12/12/19 20:34 Dose: 100 mg Famotidine (Pepcid) 20 mg PO Q12H [facility] Last Admin: 12/12/19 20:34 Dose: 20 mg Folic Acid (Folic Acid) 1 mg PO DAILY [facility] Cefazolin Sodium/Dextrose 2 gm (/ Premix) 50 mls @ 100 mls/hr IV Q8H [facility] Stop: 12/13/19 10:29 Last Admin: 12/13/19 01:51 Dose: 100 mls/hr Ketorolac Tromethamine (Toradol) 15 mg IVPUSH Q6H PRN PRN Reason: Pain Last Admin: 12/12/19 18:14 Dose: 15 mg Magnesium Hydroxide (Milk Of Magnesia) 30 ml PO BID PRN PRN Reason: Constipation Magnesium Oxide (Magnesium Oxide) 400 mg PO BEDTIME [facility] Last Admin: 12/12/19 20:35 Dose: 400 mg Miscellaneous Information (Remove Patch) 0 ea TRDERM ONETIME ONE Stop: 12/15/19 10:01 Morphine Sulfate (Morphine) 2 mg IVPUSH Q2H PRN PRN Reason: Breakthrough Pain Multivitamins (Thera) 1 each PO DAILY [facility] Naloxone HCl (Narcan) 0.1 mg IVPUSH Q5M PRN PRN Reason: Oversedation Ondansetron HCl (Zofran) 4 mg IVPUSH Q6H PRN PRN Reason: Nausea/Vomiting Last Admin: 12/13/19 02:06 Dose: 4 mg Oxycodone/Acetaminophen (Percocet 325-5 Mg) 1 - 2 tab PO Q4H PRN PRN Reason: Pain Last Admin: 12/13/19 02:05 Dose: 1 tab Crisaborole [Eucrisa (] Ointment) 0 each TOP BID PRN PRN Reason: Rash Cyclosporine ( (Restasis)) 0 each EYEBOTH DAILY [facility] Olopatadine (Pataday ()) 0 each EYEBOTH DAILY [facility] Rivaroxaban (Xarelto) 10 mg PO DAILY [facility] Saccharomyces Boulardii (Florastor) 250 mg PO DAILY [facility] Senna (Senna) 8.6 mg PO BID PRN PRN Reason: Constipation Vitamin B Complex/Vitamin C (Super B With Vitamin C) 1 cap PO DAILY [facility] Discontinued Medications Acetaminophen (Tylenol) 975 mg PO ONETIME A[facility]LIE Stop: 12/12/19 14:00 Last Admin: 12/12/19 10:07 Dose: 975 mg Bupivacaine HCl (Sensorcaine-Mpf 0.25%) Confirm Administered Dose 30 ml .ROUTE .STK-MED ONE Stop: 12/12/19 09:33 Last Admin: 12/12/19 12:06 Dose: 30 ml Cefazolin Sodium (Ancef) Confirm Administered Dose 2 gm .ROUTE .STK-MED ONE Stop: 12/12/19 09:33 Last Admin: 12/12/19 12:02 Dose: 2 gm Cefazolin Sodium (Ancef) Confirm Administered Dose 2 gm .ROUTE .STK-MED ONE Stop: 12/12/19 09:53 Morphine Sulfate 8 mg/Epinephrine HCl 0.3 mg/Cefuroxime Sodium 750 mg/Ketorolac Tromethamine 30 mg/Sodium Chloride 7.9 ml 0 mg .XX ASDIRECTED PRN PRN Reason: Pain Stop: 12/12/19 12:00 Last Admin: 12/12/19 12:06 Dose: 788.3 mg Dexamethasone (Dexamethasone) Confirm Administered Dose 20 mg .ROUTE .STK-MED ONE Stop: 12/12/19 09:53 Epinephrine HCl (Adrenalin) Confirm Administered Dose 1 mg .ROUTE .STK-MED ONE Stop: 12/12/19 09:39 Fentanyl (Sublimaze) Confirm Administered Dose 100 mcg .ROUTE .STK-MED ONE Stop: 12/12/19 09:52 Fentanyl (Sublimaze) 50 mcg IVPUSH Q5M PRN PRN Reason: Pain Stop: 12/12/19 13:00 Fentanyl (Sublimaze) Confirm Administered Dose 100 mcg .ROUTE .STK-MED ONE Stop: 12/12/19 11:32 Fentanyl (Sublimaze) Confirm Administered Dose 100 mcg .ROUTE .STK-MED ONE Stop: 12/12/19 12:11 Hydromorphone HCl (Dilaudid) 0.5 mg IVPUSH Q10M PRN PRN Reason: Pain (severe 7-10) Stop: 12/12/19 13:00 Hydromorphone HCl (Dilaudid) Confirm Administered Dose 1 mg .ROUTE .STK-MED ONE Stop: 12/12/19 11:43 Hydromorphone HCl (Dilaudid) Confirm Administered Dose 1 mg .ROUTE .STK-MED ONE Stop: 12/12/19 12:33 Lactated Ringer's (Ringers, Lactated) 1,000 mls @ 125 mls/hr IV ASDIRECTED ASHLIE Stop: 12/12/19 23:00 Last Admin: 12/12/19 13:30 Dose: 125 mls/hr Lidocaine HCl (Xylocaine-Mpf 1%) Confirm Administered Dose 4 mls @ as directed .ROUTE .STK-MED ONE Stop: 12/12/19 09:52 Lidocaine HCl (Xylocaine-Mpf 1%) Confirm Administered Dose 2 mls @ as directed .ROUTE .STK-MED ONE Stop: 12/12/19 10:11 Lidocaine HCl (Xylocaine-Mpf 1%) Confirm Administered Dose 4 mls @ as directed .ROUTE .STK-MED ONE Stop: 12/12/19 10:56 Lactated Ringer's (Ringers, Lactated) Confirm Administered Dose 1,000 mls @ as directed .ROUTE .STK-MED ONE Stop: 12/12/19 13:05 Iodine (Iodine 2% Mild Tincture) Confirm Administered Dose 30 ml .ROUTE .STK- MED ONE Stop: 12/12/19 09:33 Last Admin: 12/12/19 12:00 Dose: 18 ml Ketamine HCl (Ketalar) Confirm Administered Dose 500 mg .ROUTE .STK-MED ONE Stop: 12/12/19 09:52 Ketorolac Tromethamine (Toradol) Confirm Administered Dose 30 mg .ROUTE .STK- MED ONE Stop: 12/12/19 10:47 Lidocaine/Sodium Bicarbonate (Buffered Lidocaine 1% In Ns 8.4%) 0.25 ml IDERM ONETIME PRN PRN Reason: Prior to IV Start Stop: 12/12/19 18:00 Last Admin: 12/12/19 10:10 Dose: 0.25 ml Midazolam HCl (Versed 1 Mg/Ml) Confirm Administered Dose 2 mg .ROUTE .STK-MED ONE Stop: 12/12/19 09:52 Non-Formulary Medication (Epinephrine [Epipen]) 1 injection SUBCUT ASDIRECTED PRN PRN Reason: allergic reaction Non-Formulary Medication (Potassium Gluconate [Potassium]) 99 mg PO DAILY [facility] Ondansetron HCl (Zofran) Confirm Administered Dose 4 mg .ROUTE .STK-MED ONE Stop: 12/12/19 09:53 Ondansetron HCl (Zofran) 4 mg IVPUSH ONETIME PRN PRN Reason: Nausea/Vomiting Stop: 12/12/19 13:00 Oxycodone HCl (Oxycontin) 10 mg PO ONETIME [facility] Stop: 12/12/19 14:00 Last Admin: 12/12/19 10:07 Dose: 10 mg Pregabalin (Lyrica) 50 mg PO ONETIME [facility] Stop: 12/12/19 14:00 Last Admin: 12/12/19 10:07 Dose: 50 mg Propofol (Diprivan 20 Ml) Confirm Administered Dose 600 mg .ROUTE .STK-MED ONE Stop: 12/12/19 09:52 Propofol (Diprivan 20 Ml) Confirm Administered Dose 600 mg .ROUTE .STK-MED ONE Stop: 12/12/19 11:23 Propofol (Diprivan 20 Ml) Confirm Administered Dose 200 mg .ROUTE .STK-MED ONE Stop: 12/12/19 12:06 Ropivacaine (Naropin 0.5%) Confirm Administered Dose 30 ml .ROUTE .STK-MED ONE Stop: 12/12/19 09:40 Scopolamine (Transderm-Scop) 1.5 mg TRDERM ONETIME [facility] Last Admin: 12/12/19 10:35 Dose: 1.5 mg Sodium Chloride (Saline Flush) 10 ml FLUSH ASDIRECTED PRN PRN Reason: Keep Vein Open Stop: 12/12/19 18:00 Tranexamic Acid (Cyklokapron) Confirm Administered Dose 1,000 mg .ROUTE .STK- MED ONE Stop: 12/12/19 09:33 Last Admin: 12/12/19 12:13 Dose: 1,000 mg Vancomycin HCl (Vancomycin) Confirm Administered Dose 1 gm .ROUTE .STK-MED ONE Stop: 12/12/19 09:33 Last Admin: 12/12/19 12:09 Dose: 1 gm - Exam Wound/Incisions: Dressing Dry and Intact General: Alert, Cooperative, No Acute Distress Lungs: Normal Respiratory Effort Extremities: Other (Able to sense light touch at LLE. Jer's negative. ) Sepsis Event Note - Evaluation Sepsis Screening Result: No Definite Risk - Focused Exam Vital Signs: Vital Signs Temp Pulse Resp BP Pulse Ox 12/13/19 04:38 97.9 F 74 18 98/62 94 L 12/13/19 02:16 97.7 F 62 18 113/67 93 L 12/12/19 20:55 98.1 F 82 18 113/62 93 L Date Exam was Performed: 12/13/19 Time Exam was Performed: 08:32 - Problem List Review Problem List Initiated/Reviewed/Updated: Yes - My Orders Last 24 Hours: Active Orders 24 hr Category Date Time Status Communication Order [RC] ASDIRECTED Care 12/12/19 11:16 Active Cooling Warming Measures [RC] ASDIRECTED Care 12/12/19 11:16 Inactive Pulse Oximetry [RC] ASDIRECTED Care 12/12/19 11:16 Active Ready for Discharge [RC] PER UNIT ROUTINE Care 12/13/19 08:31 Ordered Regular Diet [DIET] Diet 12/12/19 Lunch Active Calcium Carbonate Med 12/12/19 21:00 Active 600 mg PO BEDTIME Cholecalciferol (Vitamin D3) [Vitamin D3] Med 12/12/19 15:00 Active 50 mcg PO TID Docusate Sodium [Colace] Med 12/12/19 21:00 Active 100 mg PO BID Famotidine [Pepcid] Med 12/12/19 21:00 Active 20 mg PO Q12H Folic Acid Med 12/13/19 09:00 Active 1 mg PO DAILY Ketorolac [Toradol] Med 12/12/19 16:45 Active 15 mg IVPUSH Q6H PRN Magnesium Oxide Med 12/12/19 21:00 Active 400 mg PO BEDTIME Multivitamins,Therapeutic [Thera] Med 12/13/19 09:00 Active 1 each PO DAILY Patient's Own Medication [Ptom] Med 12/13/19 09:00 Active 0 each EYEBOTH DAILY Patient's Own Medication [Ptom] Med 12/13/19 09:00 Active 0 each EYEBOTH DAILY Patient's Own Medication [Ptom] Med 12/12/19 14:05 Active 0 each TOP BID PRN Remove Patch Med 12/15/19 10:00 Once 0 ea TRDERM ONETIME ONE Rivaroxaban [Xarelto] Med 12/13/19 09:00 Pending 10 mg PO DAILY Saccharomyces Boulardii [Florastor] Med 12/13/19 09:00 Active 250 mg PO DAILY Vitamin B Complex with C [Super B With Vitamin C] Med 12/13/19 09:00 Active 1 cap PO DAILY ceFAZolin [Ancef] 2 gm Med 12/12/19 18:00 Active Premix Bag 1 bag IV Q8H Medication Orders Bisacodyl (Dulcolax) 5 mg PO DAILY PRN PRN Reason: Constipation Calcium Carbonate/Glycine (Calcium Carbonate) 600 mg PO BEDTIME [facility] Last Admin: 12/12/19 20:34 Dose: 600 mg Cholecalciferol (Vitamin D3) 50 mcg PO TID [facility] Last Admin: 12/12/19 20:35 Dose: 50 mcg Admin: 12/12/19 15:58 Dose: 50 mcg Cyclobenzaprine HCl (Flexeril) 5 mg PO TID PRN PRN Reason: Spasms Docusate Sodium (Colace) 100 mg PO BID [facility] Last Admin: 12/12/19 20:34 Dose: 100 mg Famotidine (Pepcid) 20 mg PO Q12H [facility] Last Admin: 12/12/19 20:34 Dose: 20 mg Folic Acid (Folic Acid) 1 mg PO DAILY [facility] Cefazolin Sodium/Dextrose 2 gm (/ Premix) 50 mls @ 100 mls/hr IV Q8H [facility] Stop: 12/13/19 10:29 Last Admin: 12/13/19 01:51 Dose: 100 mls/hr Infusion: 12/12/19 17:55 Dose: 100 mls/hr Admin: 12/12/19 17:25 Dose: 100 mls/hr Ketorolac Tromethamine (Toradol) 15 mg IVPUSH Q6H PRN PRN Reason: Pain Last Admin: 12/12/19 18:14 Dose: 15 mg Magnesium Hydroxide (Milk Of Magnesia) 30 ml PO BID PRN PRN Reason: Constipation Magnesium Oxide (Magnesium Oxide) 400 mg PO BEDTIME [facility] Last Admin: 12/12/19 20:35 Dose: 400 mg Miscellaneous Information (Remove Patch) 0 ea TRDERM ONETIME ONE Stop: 12/15/19 10:01 Morphine Sulfate (Morphine) 2 mg IVPUSH Q2H PRN PRN Reason: Breakthrough Pain Multivitamins (Thera) 1 each PO DAILY [facility] Naloxone HCl (Narcan) 0.1 mg IVPUSH Q5M PRN PRN Reason: Oversedation Ondansetron HCl (Zofran) 4 mg IVPUSH Q6H PRN PRN Reason: Nausea/Vomiting Last Admin: 12/13/19 02:06 Dose: 4 mg Admin: 12/12/19 18:12 Dose: 4 mg Oxycodone/Acetaminophen (Percocet 325-5 Mg) 1 - 2 tab PO Q4H PRN PRN Reason: Pain Last Admin: 12/13/19 02:05 Dose: 1 tab Crisaborole [Eucrisa (] Ointment) 0 each TOP BID PRN PRN Reason: Rash Cyclosporine ( (Restasis)) 0 each EYEBOTH DAILY [facility] Olopatadine (Pataday ()) 0 each EYEBOTH DAILY [facility] Rivaroxaban (Xarelto) 10 mg PO DAILY [facility] Saccharomyces Boulardii (Florastor) 250 mg PO DAILY [facility] Senna (Senna) 8.6 mg PO BID PRN PRN Reason: Constipation Vitamin B Complex/Vitamin C (Super B With Vitamin C) 1 cap PO DAILY ASHLIE - Assessment Assessment (Free Text/Narrative):: POD#1 - left TKA - Plan Plan (Free Text/Narrative):: 1. Hgb 10.9. 2. Discharge to home today if cleared by Hospitalist service and therapies. 3. Outpatient therapy. 4. Xarelto (family hx VTE), frequent mobility, TEDs. 5. Percocet, Zofran, cyclobenzaprine, Xarelto rx provided. The pt's case was discussed with Dr. Grove.
[2019-12-13] MEDS ORDERED: OLOPATADINE EYEBOTH SCH (09:00)
[2019-12-13] MEDS ORDERED: Multivitamins,Therapeutic Tab PO SCH (09:00)
[2019-12-13] MEDS ORDERED: Non-Formulary Medication 1 Each (Potassium Gluconate [Potassium] 99 MG) PO SCH (09:00)
[2019-12-13] MEDS ORDERED: Rivaroxaban 10 MG Tab PO SCH (09:00)
[2019-12-13] MEDS ORDERED: Folic Acid 1 MG Tab PO SCH (09:00)
[2019-12-13] MEDS ORDERED: Vitamin B Complex With Vitamin C Cap PO SCH (09:00)
[2019-12-13] MEDS ORDERED: Saccharomyces Boulardii (Probiotic) 250 MG Cap PO SCH (09:00)
[2019-12-13] MEDS: Docusate Sodium 100 MG Cap PO SCH (09:03)
[2019-12-13] MEDS: Famotidine 20 MG Tab PO SCH (09:03)
[2019-12-13] MEDS: Cholecalciferol (Vitamin D3) 25 MCG Tab PO SCH (09:04)
--- NOTE | 2019-12-15 10:43 | PCM.OPNOTE ---
- General Post-Op/Procedure Note Date of Surgery/Procedure: 12/12/19 Operative Procedure(s): left total knee arthroplasty Pre Op Diagnosis: left knee osteoarthrosis Post-Op Diagnosis: Same Anesthesia Technique: General LMA, MAC, Regional Block Primary Surgeon: Geronimo Grove Anesthesia Provider: Loyda Gonzalez Dye Worker: Lakisha Miles Dye Worker: Yumiko Ventura EBL in mLs: 200 Complications: None Condition: Good Free Text/Narrative:: 5 femur 4 tibia 9mm 29x9
--- NOTE | 2019-12-15 11:13 | OR ---
DATE OF OPERATION: 12/12/2019 SURGEON: Geronimo Grove MD OPERATION PERFORMED: Right total knee arthroplasty. PREOPERATIVE DIAGNOSIS: Right knee osteoarthrosis. POSTOPERATIVE DIAGNOSIS: Right knee osteoarthrosis. ANESTHESIA: General LMA, MAC with regional block. ANESTHESIA PROVIDER: Nicolasa Ferrell. [employer]OP SUPERVISOR: Lakisha Miles PA-C; and Yumiko Ventura LPN. ESTIMATED BLOOD LOSS: 200 mL. COMPLICATIONS: None. CONDITION: Stable. IMPLANTS: 1. [place] size 5 press-fit CR femur. 2. [place] size 4 press-fit [place] tibial base plate. 3. Radha size 4, 9 mm CS polyethylene insert. 4. Radha size 29 x 9 mm press fit asymmetric patella. DESCRIPTION OF PROCEDURE: The patient was identified in the preop holding area. Proper site was marked and identified by the surgeon. The patient was taken back to the operating theater. After adequate anesthesia, the patient's right lower extremity had a nonsterile tourniquet applied and it was sterilely prepped and draped in the usual sterile fashion. OR time-out was performed. The patient received 2 g IV Ancef. At this time, the right lower extremity was exsanguinated. Tourniquet was insufflated to 300 mmHg. Standard medial parapatellar incision was made. Medial parapatellar arthrotomy was created. Deep fibers of the MCL were raised and anterior fat pad was resected. At this time, attention was turned to the patella. Patella measured 22, it was resected to a 13 for a 29 x 9 mm patella. Drill holes were then drilled and found to be in adequate position. The drill was then drilled in the distal femur and the intramedullary distal femoral cutting guide was then placed. 8 mm was resected off the distal femur and was found to be an adequate resection. Sizing guide was placed. It was found to be a size 5 press-fit CR femur that was shown on the implant record at the beginning of this dictation. The drill holes were drilled for the epicondylar axis using [place] line and epicondyles as reference. At this time, the 4-in - 1 cutting block was placed. An anterior posterior and anterior and posterior chamfer cuts were then completed. Attention was turned to the tibia. The posterior medial lateral retractors were placed. The extramedullary tibial guide was placed. It was placed in the old footprint of the ACL. It was aligned with the center of the ankle and 0 degrees of slope, 9 mm was then resected off the unaffected side. There was found to be an acceptable reduction. At this time, posterior osteophytes were removed along with medial and lateral meniscus. A trial implant was placed with a correct sized tibia that was mentioned at the beginning of the dictation. A Radha size 4, 9 mm CS polyethylene insert was then placed. The patient's knee was brought through range of motion. The patella was tracking centrally and was stable to varus and valgus stress. Alignment was found to be roughly at 0 degrees. The tibia was stamped and drilled in proper rotation. The universal tibial base plate was impacted in place. Next, the [place] size 5 press-fit CR femur impacted into place and the [place] size 4, 9 mm CS polyethylene insert was placed. The patient's knee was brought into full extension. The patella was then press-fit in place at this time. Tourniquet was deflated. One liter dilute Betadine solution was irrigated through the knee along with 3 L of pulse lavage irrigation with Ancef. Periarticular injection was then completed. The patient's knee was brought through a range of motion. Knee was found to be stable to varus valgus stress, the patella was tracking centrally with full range of motion. At this time, a #2 barbed suture was used for closure of the medial parapatellar arthrotomy. Topical tranexamic acid was placed. 2-0 Vicryl was used subcutaneously, Prineo was used for the skin. The patient tolerated the procedure well and was sent to the PACU in stable condition. MMODAL /[id number] FERNANDO
--- NOTE | 2019-12-15 15:57 | PCM.DCSUM1 ---
Discharge Summary - Hospital Course Brief History: Lila is a 74 yo female who underwent left TKA with Dr. Grove on 12-12-2019. The procedure was completed under general anesthesia with adductor canal block. The pt tolerated the procedure well and was admitted to the Medical-Surgical Unit. Medical management was provided by the Hospitalist service. The pt's Hospital course was uneventful. The pt's Hgb on POD#1 was 10.9. On POD#1, Xarelto 10mg PO daily was initiated for VTE prophylaxis. SCDs and TEDs were also ordered. A Mepilex dressing was placed at the incision site at the time of surgery and remained clean and dry. The pt participated in P.T. and O.T. and progressed well. The pt was allowed to WBAT. On POD#1, the pt was deemed appropriate to discharge to home with her family. - Discharge Data Discharge Date: 12/13/19 Discharge Disposition: Home, Self-Care 01 Condition: Good - Referral to Home Health Primary Care Physician: Delgado Doyle MD - Patient Summary/Data Operative Procedure(s) Performed: left total knee arthroplasty Consults: Consultations 12/12/19 06:36 OT Evaluation and Treatment [CONS] Routine PT Evaluation and Treatment [CONS] Routine 12/12/19 06:37 Consult to Physician [CONS] Routine - Patient Instructions Diet: Usual Diet as Tolerated Activity: Apply Ice, As Tolerated, Elevate Extremity, Full Weight Bearing Driving: Do Not Drive Showering/Bathing: May Shower Wound/Incision Care: Keep Operative Site/Wound Site Clean and Dry, Do NOT Change Dressing Notify Provider of: Fever, Increased Pain, Swelling and Redness, Drainage, Nausea and/or Vomiting Other/Special Instructions: Please get up and moving around EVERY HOUR while awake. This helps to prevent blood clots. Please use your walker and have help with mobility as needed. Take a short walk in your home every hour while awake. Please take 325mg aspirin TWICE daily. The aspirin is being used for blood clot prevention and not for pain management so please do not miss a dose of the medication. You could use a medication like Pepcid or Tagamet and a medication like Prilosec or Nexium to protect your stomach while you are using the aspirin. At home, please complete the exercises that you learned during the Hospital stay. Schedule for physical therapy. Use the pain medication as needed. The medication may cause drowsiness and constipation. Contact your primary care provider for instructions if you are constipated. You may use a stool softener like docusate sodium or Colace 100mg twice daily and/or a laxative like Miralax daily for constipation. Increase your water and fiber intake while you are using the pain medication. Discontinue use of the pain medication as soon as able. Please do not use other medications that may cause drowsiness (other pain medications, anxiety pills, cold medications, sleeping pills, etc) while using the prescription pain medication. Do not use alcohol while using the pain medication. You may use acetaminophen or Tylenol for pain management, however, please ensure you are not using over 4000 mg or 4 grams of acetaminophen per day from all sources. Your pain medication has 325mg of acetaminophen per tablet. At this time, please do not use ibuprofen (Motrin, Advil) or naproxen (Aleve) for pain management as you are using the aspirin. When the aspirin course is completed in 4 to 6 weeks, you could use ibuprofen or naproxen for pain management (if this is allowed by your primary care provider). Wear the MARCIAL hose during the day and you may remove these at night. Elevate the limb to decrease swelling. Place ice to the area often. Place a towel between your skin and the blue pad. Use the incentive spirometer often. Take deep breaths throughout the day. Please keep the dressing in place until follow-up. Notify the Clinic if the dressing becomes saturated. Increase your protein intake while you are healing. If you have diabetes, please closely monitor your blood sugars and notify your primary care provider with abnormal values. Elevated blood sugars increases the risk of infection. Call the Clinic with questions or concerns - [phone]. - Discharge Plan *PRESCRIPTION DRUG MONITORING PROGRAM REVIEWED*: No *COPY OF PRESCRIPTION DRUG MONITORING REPORT IN PATIENT JAYLENE: No Prescriptions/Med Rec: Acetaminophen/oxyCODONE [Percocet 325-5 MG] 1 - 2 tab PO Q4H PRN #60 tablet PRN Reason: Pain Cyclobenzaprine [Flexeril] 5 mg PO BID PRN #20 tablet PRN Reason: Spasms Ondansetron [Zofran] 4 mg PO Q6H PRN #20 tab PRN Reason: Nausea Rivaroxaban [Xarelto] 10 mg PO DAILY #30 tablet Home Medications: Home Meds Calcium Carbonate [Calcium] 600 mg PO DAILY 12/09/19 [History] Cholecalciferol (Vitamin D3) [Vitamin D3] 2,000 unit PO TID 12/09/19 [History] EPINEPHrine [Epipen] 1 injection SUBCUT ASDIRECTED PRN 12/09/19 [History] Folic Acid 1 mg PO DAILY 12/09/19 [History] L.acidoph,Paracasei, B.lactis [Probiotic] 1 cap PO DAILY 12/09/19 [History] Magnesium 400 mg PO DAILY 12/09/19 [History] Multivitamin [Multivitamins] 1 cap PO DAILY 12/09/19 [History] Olopatadine [Pataday 0.2% Ophth Soln] 1 drop EYEBOTH DAILY 12/09/19 [History] Potassium Gluconate [Potassium] 99 mg PO DAILY 12/09/19 [History] Vitamin B Complex 1 cap PO DAILY 12/09/19 [History] cycloSPORINE [Restasis] 1 drop EYEBOTH DAILY 12/09/19 [History] Crisaborole [Eucrisa] 1 applic TP BID PRN 12/12/19 [History] Estriol 0.05% 1 applic VAG MOTH 12/12/19 [History] Acetaminophen/oxyCODONE [Percocet 325-5 MG] 1 - 2 tab PO Q4H PRN #60 tablet 09/01 [Rx] Cyclobenzaprine [Flexeril] 5 mg PO BID PRN #20 tablet 12/13/19 [Rx] Docusate Sodium [Colace] 100 mg PO BID cap 12/13/19 [Rx] Famotidine [Pepcid] 20 mg PO Q12H tablet 12/13/19 [Rx] Magnesium Hydroxide [Milk of Magnesia] 30 ml PO BID PRN cup 12/13/19 [Rx] Ondansetron [Zofran] 4 mg PO Q6H PRN #20 tab 12/13/19 [Rx] Rivaroxaban [Xarelto] 10 mg PO DAILY #30 tablet 12/13/19 [Rx] Sennosides [Senna] 8.6 mg PO BID PRN tablet 12/13/19 [Rx] bisacodyL [Dulcolax] 5 mg PO DAILY PRN tablet 12/13/19 [Rx] Patient Handouts: Rivaroxaban oral tablets Referrals: Lakisha Miles PA-C [Physician [facility]] - (Please follow up with Lakisha Miles PA-C on the following dates- December 19 at 10:15, December 26 at 1:00, and January 23 at 11:15.) - Discharge Summary/Plan Comment DC Time >30 min.: No - Patient Data Vitals - Most Recent: Last Vital Signs Temp 98.2 F 12/13/19 08:10 Pulse 67 12/13/19 08:10 Resp 14 12/13/19 08:10 BP 107/52 L 12/13/19 08:10 Pulse Ox 95 12/13/19 08:10 Weight - Most Recent: 153 lb 3.2 oz Med Orders - Current: Current Medications Discontinued Medications Acetaminophen (Tylenol) 975 mg PO ONETIME [facility] Stop: 12/12/19 14:00 Last Admin: 12/12/19 10:07 Dose: 975 mg Bisacodyl (Dulcolax) 5 mg PO DAILY PRN PRN Reason: Constipation Bupivacaine HCl (Sensorcaine-Mpf 0.25%) Confirm Administered Dose 30 ml .ROUTE .STK-MED ONE Stop: 12/12/19 09:33 Last Admin: 12/12/19 12:06 Dose: 30 ml Calcium Carbonate/Glycine (Calcium Carbonate) 600 mg PO BEDTIME [facility] Last Admin: 12/12/19 20:34 Dose: 600 mg Cefazolin Sodium (Ancef) Confirm Administered Dose 2 gm .ROUTE .STK-MED ONE Stop: 12/12/19 09:33 Last Admin: 12/12/19 12:02 Dose: 2 gm Cefazolin Sodium (Ancef) Confirm Administered Dose 2 gm .ROUTE .STK-MED ONE Stop: 12/12/19 09:53 Cholecalciferol (Vitamin D3) 50 mcg PO TID [facility] Last Admin: 12/13/19 09:04 Dose: 50 mcg Morphine Sulfate 8 mg/Epinephrine HCl 0.3 mg/Cefuroxime Sodium 750 mg/Ketorolac Tromethamine 30 mg/Sodium Chloride 7.9 ml 0 mg .XX ASDIRECTED PRN PRN Reason: Pain Stop: 12/12/19 12:00 Last Admin: 12/12/19 12:06 Dose: 788.3 mg Cyclobenzaprine HCl (Flexeril) 5 mg PO TID PRN PRN Reason: Spasms Dexamethasone (Dexamethasone) Confirm Administered Dose 20 mg .ROUTE .STK-MED ONE Stop: 12/12/19 09:53 Docusate Sodium (Colace) 100 mg PO BID [facility] Last Admin: 12/13/19 09:03 Dose: 100 mg Epinephrine HCl (Adrenalin) Confirm Administered Dose 1 mg .ROUTE .STK-MED ONE Stop: 12/12/19 09:39 Famotidine (Pepcid) 20 mg PO Q12H [facility] Last Admin: 12/13/19 09:03 Dose: 20 mg Fentanyl (Sublimaze) Confirm Administered Dose 100 mcg .ROUTE .STK-MED ONE Stop: 12/12/19 09:52 Fentanyl (Sublimaze) 50 mcg IVPUSH Q5M PRN PRN Reason: Pain Stop: 12/12/19 13:00 Fentanyl (Sublimaze) Confirm Administered Dose 100 mcg .ROUTE .STK-MED ONE Stop: 12/12/19 11:32 Fentanyl (Sublimaze) Confirm Administered Dose 100 mcg .ROUTE .STK-MED ONE Stop: 12/12/19 12:11 Folic Acid (Folic Acid) 1 mg PO DAILY [facility] Last Admin: 12/13/19 09:02 Dose: 1 mg Hydromorphone HCl (Dilaudid) 0.5 mg IVPUSH Q10M PRN PRN Reason: Pain (severe 7-10) Stop: 12/12/19 13:00 Hydromorphone HCl (Dilaudid) Confirm Administered Dose 1 mg .ROUTE .STK-MED ONE Stop: 12/12/19 11:43 Hydromorphone HCl (Dilaudid) Confirm Administered Dose 1 mg .ROUTE .STK-MED ONE Stop: 12/12/19 12:33 Lactated Ringer's (Ringers, Lactated) 1,000 mls @ 125 mls/hr IV ASDIRECTED [facility] Stop: 12/12/19 23:00 Last Admin: 12/12/19 13:30 Dose: 125 mls/hr Cefazolin Sodium/Dextrose 2 gm (/ Premix) 50 mls @ 100 mls/hr IV Q8H [facility] Stop: 12/13/19 10:29 Last Admin: 12/13/19 09:07 Dose: 100 mls/hr Lidocaine HCl (Xylocaine-Mpf 1%) Confirm Administered Dose 4 mls @ as directed .ROUTE .STK-MED ONE Stop: 12/12/19 09:52 Lidocaine HCl (Xylocaine-Mpf 1%) Confirm Administered Dose 2 mls @ as directed .ROUTE .STK-MED ONE Stop: 12/12/19 10:11 Lidocaine HCl (Xylocaine-Mpf 1%) Confirm Administered Dose 4 mls @ as directed .ROUTE .STK-MED ONE Stop: 12/12/19 10:56 Lactated Ringer's (Ringers, Lactated) Confirm Administered Dose 1,000 mls @ as directed .ROUTE .STK-MED ONE Stop: 12/12/19 13:05 Iodine (Iodine 2% Mild Tincture) Confirm Administered Dose 30 ml .ROUTE .ST- MED ONE Stop: 12/12/19 09:33 Last Admin: 12/12/19 12:00 Dose: 18 ml Ketamine HCl (Ketalar) Confirm Administered Dose 500 mg .ROUTE .ST-MED ONE Stop: 12/12/19 09:52 Ketorolac Tromethamine (Toradol) 15 mg IVPUSH Q6H PRN PRN Reason: Pain Last Admin: 12/12/19 18:14 Dose: 15 mg Ketorolac Tromethamine (Toradol) Confirm Administered Dose 30 mg .ROUTE .ST- MED ONE Stop: 12/12/19 10:47 Lidocaine/Sodium Bicarbonate (Buffered Lidocaine 1% In Ns 8.4%) 0.25 ml IDERM ONETIME PRN PRN Reason: Prior to IV Start Stop: 12/12/19 18:00 Last Admin: 12/12/19 10:10 Dose: 0.25 ml Magnesium Hydroxide (Milk Of Magnesia) 30 ml PO BID PRN PRN Reason: Constipation Magnesium Oxide (Magnesium Oxide) 400 mg PO BEDTIME [facility] Last Admin: 12/12/19 20:35 Dose: 400 mg Midazolam HCl (Versed 1 Mg/Ml) Confirm Administered Dose 2 mg .ROUTE .STK-MED ONE Stop: 12/12/19 09:52 Miscellaneous Information (Remove Patch) 0 ea TRDERM ONETIME ONE Stop: 12/15/19 10:01 Morphine Sulfate (Morphine) 2 mg IVPUSH Q2H PRN PRN Reason: Breakthrough Pain Multivitamins (Thera) 1 each PO DAILY [facility] Last Admin: 12/13/19 09:02 Dose: 1 each Naloxone HCl (Narcan) 0.1 mg IVPUSH Q5M PRN PRN Reason: Oversedation Non-Formulary Medication (Epinephrine [Epipen]) 1 injection SUBCUT ASDIRECTED PRN PRN Reason: allergic reaction Non-Formulary Medication (Potassium Gluconate [Potassium]) 99 mg PO DAILY [facility] Ondansetron HCl (Zofran) 4 mg IVPUSH Q6H PRN PRN Reason: Nausea/Vomiting Last Admin: 12/13/19 08:58 Dose: 4 mg Ondansetron HCl (Zofran) Confirm Administered Dose 4 mg .ROUTE .STK-MED ONE Stop: 12/12/19 09:53 Ondansetron HCl (Zofran) 4 mg IVPUSH ONETIME PRN PRN Reason: Nausea/Vomiting Stop: 12/12/19 13:00 Oxycodone HCl (Oxycontin) 10 mg PO ONETIME [facility] Stop: 12/12/19 14:00 Last Admin: 12/12/19 10:07 Dose: 10 mg Oxycodone/Acetaminophen (Percocet 325-5 Mg) 1 - 2 tab PO Q4H PRN PRN Reason: Pain Last Admin: 12/13/19 08:58 Dose: 1 tab Crisaborole [Eucrisa (] Ointment) 0 each TOP BID PRN PRN Reason: Rash Cyclosporine ( (Restasis)) 0 each EYEBOTH DAILY [facility] Last Admin: 12/13/19 09:05 Dose: Not Given Olopatadine (Pataday ()) 0 each EYEBOTH DAILY [facility] Last Admin: 12/13/19 09:06 Dose: Not Given Pregabalin (Lyrica) 50 mg PO ONETIME [facility] Stop: 12/12/19 14:00 Last Admin: 12/12/19 10:07 Dose: 50 mg Propofol (Diprivan 20 Ml) Confirm Administered Dose 600 mg .ROUTE .STK-MED ONE Stop: 12/12/19 09:52 Propofol (Diprivan 20 Ml) Confirm Administered Dose 600 mg .ROUTE .STK-MED ONE Stop: 12/12/19 11:23 Propofol (Diprivan 20 Ml) Confirm Administered Dose 200 mg .ROUTE .STK-MED ONE Stop: 12/12/19 12:06 Rivaroxaban (Xarelto) 10 mg PO DAILY [facility] Last Admin: 12/13/19 09:02 Dose: 10 mg Ropivacaine (Naropin 0.5%) Confirm Administered Dose 30 ml .ROUTE .STK-MED ONE Stop: 12/12/19 09:40 Saccharomyces Boulardii (Florastor) 250 mg PO DAILY [facility] Last Admin: 12/13/19 09:02 Dose: 250 mg Scopolamine (Transderm-Scop) 1.5 mg TRDERM ONETIME [facility] Last Admin: 12/12/19 10:35 Dose: 1.5 mg Senna (Senna) 8.6 mg PO BID PRN PRN Reason: Constipation Sodium Chloride (Saline Flush) 10 ml FLUSH ASDIRECTED PRN PRN Reason: Keep Vein Open Stop: 12/12/19 18:00 Tranexamic Acid (Cyklokapron) Confirm Administered Dose 1,000 mg .ROUTE .STK- MED ONE Stop: 12/12/19 09:33 Last Admin: 12/12/19 12:13 Dose: 1,000 mg Vancomycin HCl (Vancomycin) Confirm Administered Dose 1 gm .ROUTE .STK-MED ONE Stop: 12/12/19 09:33 Last Admin: 12/12/19 12:09 Dose: 1 gm Vitamin B Complex/Vitamin C (Super B With Vitamin C) 1 cap PO DAILY [facility] Last Admin: 12/13/19 09:02 Dose: 1 cap
== END 2019-12-13 12:25 | disposition home or self-care (01) | DRG 302 ==
LOC: JD.MS 09:13 → EDSTATUS 11:15
PROVIDERS: ADMIT Orthopaedic Surgery; ATTEND Orthopaedic Surgery
PROC: 0SRC0JA Replacement of Right Knee Joint with Synthetic Substitute, Uncemented, Open Approach (ICD-10-PCS; principal; 2019-12-12)
DX: M17.12 Unilateral primary osteoarthritis, left knee (principal); Z79.899 Other long term (current) drug therapy; Z79.01 Long term (current) use of anticoagulants; G89.29 Other chronic pain; Z88.8 Allergy status to other drugs, medicaments and biological substances; Z91.09 Other allergy status, other than to drugs and biological substances; Z98.890 Other specified postprocedural states; Z90.89 Acquired absence of other organs; Z98.1 Arthrodesis status; I10 Essential (primary) hypertension; Z87.891 Personal history of nicotine dependence; J31.0 Chronic rhinitis; M48.00 Spinal stenosis, site unspecified; I45.10 Unspecified right bundle-branch block; Z96.89 Presence of other specified functional implants
CPT/HCPCS: 01402; 36415; 64450; 73560-26-LT; 73560-LT; 80053; 85027; 97110-GP; 97116-GP; 97161-GP; 97165-GO; 97530-GP; 97535-GO; A9270-GY; C1776; J0171; J0690; J0697; J1100; J1170; J1885; J2001; J2250; J2270; J2405; J2704; J2795; J3010; J3370; J3490; J7120; U0002

== ENCOUNTER 2020-04-26 07:53 | Day surgery (SDC) | payer BC, MEDICARE ==
[~2020-04-26 07:53] MED LIST changes: -Bisacodyl 5 MG Tab PO PRN; -Cyclobenzaprine 10 MG Tab PO PRN; +Lactated Ringers 1,000 ML IV SCH; -Magnesium Hydroxide 400 MG/5 ML Susp 30 ML Cup PO PRN; -Morphine 2 MG/ML Syringe IVPUSH PRN; +Morphine 8 MG, EPINEPHrine 0.3 MG, Cefuroxime 750 MG, Ketorolac 30 MG, Sodium Chloride ... PRN; -Naloxone 0.4 MG/ML SDV IVPUSH PRN; +Scopolamine 1.5 MG Transdermal Patch TOP SCH; -Sennosides 8.6 MG Tab PO PRN
[2020-04-26] MEDS ORDERED: Ropivacaine 0.5% 5 MG/ML 30 ML SDV ONE (07:58)
[2020-04-26] MEDS ORDERED: EPINEPHrine 1 MG/ML SDV ONE (07:58)
[2020-04-26] MEDS ORDERED: fentaNYL 100 MCG/2 ML SDV ONE ×2 (08:04→09:28)
[2020-04-26] MEDS ORDERED: Midazolam 1 MG/ML 2 ML SDV ONE ×2 (08:04→09:53)
[2020-04-26] MEDS ORDERED: Ketamine 500 mg/10 ML MDV ONE (08:04)
[2020-04-26] MEDS ORDERED: Propofol 200 MG/20 ML SDV ONE ×2 (08:04→09:27)
[2020-04-26] MEDS ORDERED: Dexamethasone 4 MG/ML 5 ML MDV ONE (08:05)
[2020-04-26] MEDS ORDERED: Lidocaine 1% 4 ML ONE (08:05)
[2020-04-26] MEDS ORDERED: Ondansetron 4 MG/2 ML SDV ONE (08:05)
[2020-04-26] MEDS ORDERED: ceFAZolin 1 GM Vial ONE (08:13)
[2020-04-26] MEDS ORDERED: Lidocaine 1% 2 ML ONE (08:27)
[2020-04-26] MEDS: Bupivacaine 0.25% 10 ML SDV ONE ×2 (08:31→10:13)
[2020-04-26] MEDS: Vancomycin 1 GM SDV ONE ×2 (08:33→10:22)
--- NOTE | 2020-04-26 08:49 | PCM.PREANE ---
Preanesthetic Assessment - Procedure Proposed Procedure: Right Femoral Nerve Block in Adductor Canal with Ultrasound guidance for post-op pain relief. - Anesthesia/Transfusion/Family Hx Anesthesia History: Prior Anesthesia Without Reaction Family History of Anesthesia Reaction: No Transfusion History: No Prior Transfusion(s) - Review of Systems General: No Symptoms Pulmonary: No Symptoms Cardiovascular: No Symptoms Gastrointestinal: No Symptoms Neurological: Pre-Existing Deficit (Previous spinal fusion L2-S1 with spinal cord stimulator. Spinal cord stimulator turned off per patient. ) Other: Reports: None - Physical Assessment NPO Status Date: 04/25/20 NPO Status Time: 21:00 Weight: 62 kg ASA Class: 2 Mental Status: Alert & Oriented x3 Airway Class: Mallampati = 2 Dentition: Reports: Normal Dentition Thyro-Mental Finger Breadths: 2 Mouth Opening Finger Breadths: 2 ROM/Head Extension: Full Lungs: Clear to Auscultation, Normal Respiratory Effort Cardiovascular: Regular Rate, Regular Rhythm - Lab Values: Laboratory Last Values SARS-CoV-2 (PCR) Not detected (NOT DETECT) 04/23/20 08:30 MRSA (PCR) Negative 04/06/20 10:30 - Allergies Allergies/Adverse Reactions: Allergies Allergy/AdvReac Type Severity Reaction Status Date / Time Bleach (Sodium Hypochlorite) Allergy Shortness Verified 04/25/20 14:04 of Breath cigarette smoke Allergy Shortness Verified 04/25/20 14:04 of Breath perfume Allergy Shortness Verified 04/25/20 14:04 of Breath detergents Allergy Shortness Uncoded 04/25/20 14:04 of Breath - Anesthesia Plan Pre-Op Medication Ordered: Anxiolytic - Acknowledgements Anesthesia Type Planned: General Anesthesia (Preoperative Adductor Canal Block) Pt an Appropriate Candidate for the Planned Anesthesia: Yes Alternatives and Risks of Anesthesia Discussed w Pt/Guardian: Yes Pt/Guardian Understands and Agrees with Anesthesia Plan: Yes PreAnesthesia Questionnaire HEENT History: Reports: Allergic Rhinitis Cardiovascular History: Reports: Hypertension Respiratory History: Reports: None Gastrointestinal History: Reports: None Genitourinary History: Reports: None 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 Musculoskeletal History: Reports: Osteoarthritis, Other (See Below) Other Musculoskeletal History: left knee pain Neurological History: Reports: None Psychiatric History: Reports: None Endocrine/Metabolic History: Reports: None Hematologic History: Reports: None Immunologic History: Reports: None Oncologic (Cancer) History: Reports: None Dermatologic History: Reports: Other (See Below) Other Dermatologic History: contact dermatitis - Infectious Disease History Infectious Disease History: Reports: None - Past Surgical History HEENT Surgical History: Reports: Tonsillectomy Cardiovascular Surgical History: Reports: None Respiratory Surgical History: Reports: None GI Surgical History: Reports: Colonoscopy Female Surgical History: Reports: None Male Surgical History: Reports: None Endocrine Surgical History: Reports: None Neurological Surgical History: Reports: Spinal Fusion Other Neurological Surgeries/Procedures: spinal stimulator Musculoskeletal Surgical History: Reports: Carpal Tunnel Oncologic Surgical History: Reports: None Dermatological Surgical History: Reports: None - SUBSTANCE USE Tobacco Use Status *Q: Former Tobacco User Recreational Drug Use History: No - HOME MEDS Home Medications: Home Meds Calcium Carbonate [Calcium] 600 mg PO TID 12/09/19 [History] Cholecalciferol (Vitamin D3) [Vitamin D3] 2,000 unit PO TID 12/09/19 [History] EPINEPHrine [Epipen] 1 injection IM ONETIME 12/09/19 [History] Folic Acid 1 mg PO DAILY 12/09/19 [History] L.acidoph,Paracasei, B.lactis [Probiotic] 1 cap PO DAILY 12/09/19 [History] Magnesium 400 mg PO BID 12/09/19 [History] Multivitamin [Multivitamins] 1 cap PO DAILY 12/09/19 [History] Olopatadine [Pataday 0.2% Ophth Soln] 1 drop EYEBOTH DAILY 12/09/19 [History] Potassium Gluconate [Potassium] 99 mg PO DAILY 12/09/19 [History] Vitamin B Complex 1 cap PO DAILY 12/09/19 [History] cycloSPORINE [Restasis] 1 drop EYEBOTH DAILY 12/09/19 [History] Ascorbate Calcium [Vitamin C] 500 mg PO DAILY 04/25/20 [History] [place] 1 dose PO DAILY 04/25/20 [History] Ipratropium [Atrovent HFA] 1 dose INH TID PRN 04/25/20 [History] [place] 3,6,9 Combination No.7 [[place] Dha] 92 mg PO DAILY 04/25/20 [History] Zinc 50 mg PO DAILY 04/25/20 [History] estradioL [Estrace 0.01% Vaginal Crm] 1 dose VAG MOTH 04/25/20 [History] Ondansetron [Zofran] 4 mg PO Q6H PRN #30 tab 04/26/20 [Rx] Rivaroxaban [Xarelto] 10 mg PO DAILY #30 tab 04/26/20 [Rx] oxyCODONE 5 - 10 mg PO Q4H PRN #60 tab 04/26/20 [Rx] - CURRENT (IN HOUSE) MEDS Current Meds: Current Medications Acetaminophen (Tylenol) 975 mg PO ONETIME [facility] Stop: 04/26/20 12:00 Last Admin: 04/26/20 08:16 Dose: 975 mg Documented by: Morphine Sulfate 8 mg/Epinephrine HCl 0.3 mg/Cefuroxime Sodium 750 mg/Ketorolac Tromethamine 30 mg/Sodium Chloride 7.9 ml 0 mg .XX ASDIRECTED PRN PRN Reason: Pain Stop: 04/26/20 23:00 Lactated Ringer's (Ringers, Lactated) 1,000 mls @ 125 mls/hr IV ASDIRECTED [facility] Stop: 04/26/20 23:00 Lidocaine/Sodium Bicarbonate (Buffered Lidocaine 1% In Ns 8.4%) 0.25 ml IDERM ONETIME PRN PRN Reason: Prior to IV Start Stop: 04/26/20 23:00 Oxycodone HCl (Oxycontin) 10 mg PO ONETIME [facility] Stop: 04/26/20 12:00 Last Admin: 04/26/20 08:16 Dose: 10 mg Documented by: Pregabalin (Lyrica) 50 mg PO ONETIME [facility] Stop: 04/26/20 12:00 Last Admin: 04/26/20 08:16 Dose: 50 mg Documented by: Scopolamine (Transderm-Scop) 1.5 mg TOP ONETIME [facility] Stop: 04/26/20 18:00 Last Admin: 04/26/20 08:15 Dose: 1.5 mg Documented by: Sodium Chloride (Saline Flush) 10 ml FLUSH ASDIRECTED PRN PRN Reason: Keep Vein Open Stop: 04/26/20 23:00 Discontinued Medications Bupivacaine HCl (Sensorcaine-Mpf 0.25%) Confirm Administered Dose 30 ml .ROUTE .STK-MED ONE Stop: 04/26/20 08:01 Last Admin: 04/26/20 08:31 Dose: 30 ml Documented by: Cefazolin Sodium (Ancef) Confirm Administered Dose 2 gm .ROUTE .STK-MED ONE Stop: 04/26/20 08:14 Dexamethasone (Dexamethasone) Confirm Administered Dose 20 mg .ROUTE .STK-MED ONE Stop: 04/26/20 08:06 Epinephrine HCl (Adrenalin) Confirm Administered Dose 1 mg .ROUTE .STK-MED ONE Stop: 04/26/20 07:59 Fentanyl (Sublimaze) Confirm Administered Dose 100 mcg .ROUTE .STK-MED ONE Stop: 04/26/20 08:05 Lidocaine HCl (Xylocaine-Mpf 1%) Confirm Administered Dose 4 mls @ as directed .ROUTE .STK-MED ONE Stop: 04/26/20 08:06 Lidocaine HCl (Xylocaine-Mpf 1%) Confirm Administered Dose 2 mls @ as directed .ROUTE .STK-MED ONE Stop: 04/26/20 08:28 Ketamine HCl (Ketalar) Confirm Administered Dose 500 mg .ROUTE .STK-MED ONE Stop: 04/26/20 08:05 Midazolam HCl (Versed 1 Mg/Ml) Confirm Administered Dose 2 mg .ROUTE .STK-MED ONE Stop: 04/26/20 08:05 Ondansetron HCl (Zofran) Confirm Administered Dose 4 mg .ROUTE .STK-MED ONE Stop: 04/26/20 08:06 Propofol (Diprivan 20 Ml) Confirm Administered Dose 600 mg .ROUTE .STK-MED ONE Stop: 04/26/20 08:05 Ropivacaine (Naropin 0.5%) Confirm Administered Dose 30 ml .ROUTE .STK-MED ONE Stop: 04/26/20 07:59 Tranexamic Acid (Cyklokapron) Confirm Administered Dose 1,000 mg .ROUTE .STK-MED ONE Stop: 04/26/20 08:01 Last Admin: 04/26/20 08:32 Dose: 1,000 mg Documented by: Vancomycin HCl (Vancomycin) Confirm Administered Dose 1 gm .ROUTE .STK-MED ONE Stop: 04/26/20 08:01 Last Admin: 04/26/20 08:33 Dose: 1 gm Documented by:
--- NOTE | 2020-04-26 08:53 | PCM.SN.2 ---
- Free Text/Narrative Note: Left selective femoral nerve block at the adductor canal for post-procedure pain control under US guidance requested by Dr. Grove. Time Out: 828 Start: 831 End: 835 Chart reviewed. Consent signed. Questions answered. Appropriate monitors applied. Time out performed. Left mid-shaft femur identified with ultrasound, scanning medially of femur, the femoral artery in the adductor canal visualized, and the femoral nerve located laterally to the artery. The skin was prepped lateral to the ultrasound probe with chlorahexadine times two. The 21ga 4 insulated block needle was inserted under direct ultrasound guidance into the adductor canal. 25mL of 0.5% ropivacaine with 1:200,000 epinephrine was injected circumferentially around the nerve with intermittent negative aspiration noted. Patient tolerated the procedure well. Sterile technique noted along with sterile gloves, mask, and sterile probe cover. See picture on progress note and vital signs on nurses notes. Block completed preoperatively. Shonda Gonzalez RADIOLOGY THERAPIST
[2020-04-26] MEDS ORDERED: HYDROmorphone 0.5 MG/0.5 ML Syringe ONE ×2 (09:24→10:32)
[2020-04-26] MEDS ORDERED: fentaNYL 100 MCG/2 ML SDV IVPUSH PRN (10:02)
[2020-04-26] MEDS ORDERED: HYDROmorphone 0.5 MG/0.5 ML Syringe IVPUSH PRN (10:02)
[2020-04-26] MEDS ORDERED: Ondansetron 4 MG/2 ML SDV IVPUSH PRN (10:02)
--- NOTE | 2020-04-26 10:55 | PCM.POSTAN ---
POST ANESTHESIA ASSESSMENT - MENTAL STATUS Mental Status: Alert, Oriented - VITAL SIGNS Vital Signs: Last Vital Signs Temp 36.4 C 04/26/20 10:45 Pulse 76 04/26/20 10:45 Resp 14 04/26/20 10:45 BP 119/65 04/26/20 10:45 Pulse Ox 96 04/26/20 10:45 - RESPIRATORY Respiratory Status: Respiratory Rate WNL, Airway Patent, O2 Saturation Stable, Supplemental Oxygen - CARDIOVASCULAR CV Status: Pulse Rate WNL, Blood Pressure Stable - GASTROINTESTINAL GI Status: No Symptoms - PAIN Pain Score: 0 - POST OP HYDRATION Hydration Status: Adequate & Stable
[2020-04-26] MEDS ORDERED: Ketorolac 15 MG/ML SDV ONE (10:58)
[2020-04-26] MEDS ORDERED: oxyCODONE 5 MG Tab PO SCH (11:45)
--- NOTE | 2020-04-26 14:57 | PCM48HPAN ---
Post Anesthesia Note - EVALUATION WITHIN 48HRS OF ANESTHETIC Vital Signs in Normal Range: Yes Patient Participated in Evaluation: No Respiratory Function Stable: Yes Airway Patent: Yes Cardiovascular Function Stable: Yes Hydration Status Stable: Yes Pain Control Satisfactory: Yes Nausea and Vomiting Control Satisfactory: Yes Mental Status Recovered: Yes Vital Signs: Last Vital Signs Temp 36.6 C 04/26/20 12:30 Pulse 66 04/26/20 14:00 Resp 18 04/26/20 14:00 BP 108/71 04/26/20 14:00 Pulse Ox 96 04/26/20 14:00 - COMMENTS/OBSERVATIONS Free Text/Narrative:: Patient had some nausea but has since resolved. Baseline anxiety still present, but patient is wanting to go home. VSS, SV, BRASWELL, FAC, CTAB, 08/22. No concerns at this time.
--- NOTE | 2020-04-30 17:35 | PCM.OPNOTE ---
- General Post-Op/Procedure Note Date of Surgery/Procedure: 04/26/20 Operative Procedure(s): right total knee arthroplasty Pre Op Diagnosis: right knee osteoarthrosis Post-Op Diagnosis: Same Anesthesia Technique: Local, MAC, Spinal Primary Surgeon: Geronimo Grove Anesthesia Provider: Loyda Gonzalez Chief Recordist: Lakisha Miles Chief Recordist: Yumiko Ventura EBL in mLs: 250 Complications: None Condition: Good Free Text/Narrative:: 5 femur 4 tibia 9mm 29x9
--- NOTE | 2020-05-03 10:56 | OR ---
DATE OF OPERATION: 04/26/2020 SURGEON: Geronimo Grove MD OPERATION PERFORMED: Right total knee arthroplasty. PREOPERATIVE DIAGNOSIS: Right knee osteoarthrosis. POSTOPERATIVE DIAGNOSIS: Right knee osteoarthrosis. ANESTHESIA: Local MAC with spinal. ANESTHESIA PROVIDER: Nicolasa Ferrell. ASSISTANTS: 1. Lakisha Miles PA-C. 2. Yumiko Ventura LPN. ESTIMATED BLOOD LOSS: 250 mL. COMPLICATIONS: None. CONDITION: Stable. IMPLANTS: 1. Mullan size 5 press-fit CR femur. 2. Mullan size 4 press-fit tibial base plate. 3. Mullan size 4, 9 mm CS polyethylene insert. 4. Mullan size 29 x 9 mm press fit asymmetric patella. DESCRIPTION OF PROCEDURE: The patient was identified in the preop holding area. Proper site was marked and identified by the surgeon. The patient was taken back to the operating theater. After adequate anesthesia, the patient's right lower extremity had a nonsterile tourniquet applied and it was sterilely prepped and draped in the usual sterile fashion. OR time-out was performed. The patient received 2 g IV Ancef. At this time, the right lower extremity was exsanguinated. Tourniquet was insufflated to 300 mmHg. Standard medial parapatellar incision was made. Medial parapatellar arthrotomy was created. Deep fibers of the MCL were raised and anterior fat pad was resected. At this time, attention was turned to the patella. Patella measured 21, it was resected to a 13 for a 29 x 9 mm patella. Drill holes were then drilled and found to be in adequate position. The drill was then drilled in the distal femur and the intramedullary distal femoral cutting guide was then placed. 8 mm was resected off the distal femur and was found to be an adequate resection. Sizing guide was placed. It was found to be a size 5 press-fit CR femur that was shown on the implant record at the beginning of this dictation. The drill holes were drilled for the epicondylar axis using Whitesides line and epicondyles as reference. At this time, the 4-in- 1 cutting block was placed. An anterior posterior and anterior and posterior chamfer cuts were then completed. Attention was turned to the tibia. The posterior medial lateral retractors were placed. The extramedullary tibial guide was placed. It was placed in the old footprint of the ACL. It was aligned with the center of the ankle and 0 degrees of slope, 9 mm was then resected off the unaffected side. There was found to be an acceptable reduction. At this time, posterior osteophytes were removed along with medial and lateral meniscus. A trial implant was placed with a correct sized tibia that was mentioned at the beginning of the dictation. A Radha size 4, 9 mm CS polyethylene insert was then placed. The patient's knee was brought through range of motion. The patella was tracking centrally and was stable to varus and valgus stress. Alignment was found to be roughly at 0 degrees. The tibia was stamped and drilled in proper rotation. The universal tibial base plate was impacted in place. Next, the Radha size 5 press-fit CR femur impacted into place and the Mullan size 4, 9 mm CS polyethylene insert was placed. The patient's knee was brought into full extension. The patella was then press-fit in place at this time. Tourniquet was deflated. Irricept was irrigated through the knee along with 1 L of pulse lavage irrigation with Ancef. Periarticular injection was then completed. The patient's knee was brought through a range of motion. Knee was found to be stable to varus valgus stress, the patella was tracking centrally with full range of motion. At this time, a #2 barbed suture was used for closure of the medial parapatellar arthrotomy. Topical tranexamic acid was placed. 2-0 Vicryl was used subcutaneously, Prineo was used for the skin. The patient tolerated the procedure well and was sent to the PACU in stable condition. MMODAL /[id number] MTDD
== END 2020-04-26 15:36 | disposition home or self-care (01) ==
LOC: JD.SDS 07:53
PROVIDERS: ATTEND Orthopaedic Surgery
DX: M17.11 Unilateral primary osteoarthritis, right knee (principal); G89.18 Other acute postprocedural pain; I10 Essential (primary) hypertension; Z01.812 Encounter for preprocedural laboratory examination; Z88.8 Allergy status to other drugs, medicaments and biological substances; Z79.899 Other long term (current) drug therapy; Z91.048 Other nonmedicinal substance allergy status; Z98.890 Other specified postprocedural states; Z87.891 Personal history of nicotine dependence; Z20.828 Contact with and (suspected) exposure to other viral communicable diseases
CPT/HCPCS: 27447; 73560; 87635; 87641; 97110; 97116; 97161; A9270; C1776; J0171; J0690; J0697; J1100; J1170; J1885; J2001; J2250; J2270; J2405; J2704; J2795; J3010; J3370; J3490; J7120; 01402; 64450; U0002

== ENCOUNTER 2020-08-30 09:36 | Day surgery (SDC) | payer BC, MEDICARE ==
[~2020-08-30 09:36] MED LIST changes: -Acetaminophen 325 MG Tab PO SCH; +Dexmedetomidine 200 MCG/2 ML SDV ONE; +Lidocaine 2% with EPINEPHrine 1:200,000 20 ML SDV ONE; +Midazolam 1 MG/ML 2 ML SDV ONE; -Morphine 8 MG, EPINEPHrine 0.3 MG, Cefuroxime 750 MG, Ketorolac 30 MG, Sodium Chloride ... PRN; -Pregabalin 25 MG Cap PO SCH; +Propofol 200 MG/20 ML SDV ONE; +Ropivacaine 0.5% 5 MG/ML 30 ML SDV ONE; +fentaNYL 100 MCG/2 ML SDV ONE; -oxyCODONE ER 10 MG TAB.ER PO SCH
[2020-08-30] MEDS ORDERED: Vancomycin 1 GM SDV ONE (10:11)
--- NOTE | 2020-08-30 10:17 | PCM.PREANE ---
Preanesthetic Assessment - Procedure Proposed Procedure: Right Reverse Total Shoulder Arthroplasty - Anesthesia/Transfusion/Family Hx Anesthesia History: Prior Anesthesia Reaction Type of Anesthesia Reaction: Excessive Nausea/Vomiting (Does not do well with a scopalamine patch, "opposite effect". ) Family History of Anesthesia Reaction: No Transfusion History: No Prior Transfusion(s) - Review of Systems General: No Symptoms Pulmonary: No Symptoms Cardiovascular: No Symptoms Gastrointestinal: No Symptoms Neurological: Pre-Existing Deficit (Chonic Back Pain with Fusion L-2 through S- 1, spinal stimulator turned off. ) Other: Reports: None - Physical Assessment NPO Status Date: 08/29/20 NPO Status Time: 20:00 Weight: 62 kg ASA Class: 2 Mental Status: Alert & Oriented x3 Airway Class: Mallampati = 2 Dentition: Reports: Normal Dentition, Caries Thyro-Mental Finger Breadths: 2 Mouth Opening Finger Breadths: 3 ROM/Head Extension: Full Lungs: Clear to Auscultation, Normal Respiratory Effort Cardiovascular: Regular Rate, Regular Rhythm - Lab Values: Laboratory Last Values MRSA (PCR) Negative 08/08/20 11:14 - Allergies Allergies/Adverse Reactions: Allergies Allergy/AdvReac Type Severity Reaction Status Date / Time Bleach (Sodium Hypochlorite) Allergy Shortness Verified 08/29/20 13:20 of Breath cigarette smoke Allergy Shortness Verified 08/29/20 13:20 of Breath perfume Allergy Shortness Verified 08/29/20 13:20 of Breath detergents Allergy Shortness Uncoded 08/29/20 13:20 of Breath - Acknowledgements Anesthesia Type Planned: General Anesthesia, Regional Block (Interscalene nerve block for postoperative pain management) Pt an Appropriate Candidate for the Planned Anesthesia: Yes Alternatives and Risks of Anesthesia Discussed w Pt/Guardian: Yes Pt/Guardian Understands and Agrees with Anesthesia Plan: Yes PreAnesthesia Questionnaire HEENT History: Reports: Allergic Rhinitis, Impaired Vision Cardiovascular History: Reports: Hypertension Respiratory History: Reports: None Gastrointestinal History: Reports: None Genitourinary History: Reports: None TURN SUPERVISOR History: Reports: None Musculoskeletal History: Reports: Osteoarthritis, Other (See Below) Other Musculoskeletal History: left knee pain Neurological History: Reports: None Psychiatric History: Reports: None Endocrine/Metabolic History: Reports: None Hematologic History: Reports: None Immunologic History: Reports: None Oncologic (Cancer) History: Reports: None Dermatologic History: Reports: Other (See Below) Other Dermatologic History: contact dermatitis - Infectious Disease History Infectious Disease History: Reports: None - Past Surgical History HEENT Surgical History: Reports: Tonsillectomy Cardiovascular Surgical History: Reports: None Respiratory Surgical History: Reports: None GI Surgical History: Reports: Colonoscopy Female Surgical History: Reports: Other (See Below) Other Female Surgeries/Procedures: bladder sling Male Surgical History: Endocrine Surgical History: Reports: None Neurological Surgical History: Reports: Spinal Fusion Other Neurological Surgeries/Procedures: spinal stimulator, L2S1 fusion Musculoskeletal Surgical History: Reports: Carpal Tunnel, Knee Replacement Oncologic Surgical History: Reports: None Dermatological Surgical History: Reports: None - SUBSTANCE USE Tobacco Use Status *Q: Never Tobacco User Recreational Drug Use History: No - HOME MEDS Home Medications: Home Meds Calcium Carbonate [Calcium] 600 mg PO DAILY 12/09/19 [History] Cholecalciferol (Vitamin D3) [Vitamin D3] 2,000 unit PO TID 12/09/19 [History] EPINEPHrine [Epipen] 1 injection IM ONETIME 12/09/19 [History] Folic Acid 1 mg PO DAILY 12/09/19 [History] L.acidoph,Paracasei, B.lactis [Probiotic] 1 cap PO DAILY 12/09/19 [History] Magnesium 400 mg PO BID 12/09/19 [History] Multivitamin [Multivitamins] 1 cap PO DAILY 12/09/19 [History] Olopatadine [Pataday 0.2% Ophth Soln] 1 drop EYEBOTH DAILY 12/09/19 [History] Potassium Gluconate [Potassium] 99 mg PO DAILY 12/09/19 [History] cycloSPORINE [Restasis] 1 drop EYEBOTH DAILY 12/09/19 [History] Ascorbate Calcium [Vitamin C] 500 mg PO DAILY 04/25/20 [History] Sproul 3,6,9 Combination No.7 [Sproul Dha] 92 mg PO DAILY 04/25/20 [History] Zinc 50 mg PO DAILY 04/25/20 [History] estradioL [Estrace 0.01% Vaginal Crm] 1 dose VAG MOTH 04/25/20 [History] Acetaminophen/Codeine [Tylenol with Codeine No.3 300MG/30MG] 1 - 2 tab PO Q6H P RN #30 tab 08/29/20 [Rx] Aspirin [Aspirin EC] 325 mg PO DAILY #40 tablet. 08/29/20 [Rx] Biotin 5 mg PO DAILY 08/29/20 [History] [place] 1 dose PO DAILY 08/29/20 [History] Metoclopramide HCl [Reglan] 10 mg PO TID PRN #30 tablet 08/29/20 [Rx] Psyllium [Metamucil] 0.52 gm PO DAILY 08/29/20 [History] - CURRENT (IN HOUSE) MEDS Current Meds: Current Medications Lactated Ringer's (Ringers, Lactated) 1,000 mls @ 125 mls/hr IV ASDIRECTED ASLHIE Stop: 08/30/20 23:00 Lidocaine/Sodium Bicarbonate (Buffered Lidocaine 1% In Ns 8.4%) 0.25 ml IDERM ONETIME PRN PRN Reason: Prior to IV Start Stop: 08/30/20 23:00 Miscellaneous Information (Remove Patch) 1 ea TRDERM ONETIME ASHLIE Scopolamine (Transderm-Scop) 1.5 mg TOP ONETIME ASHLIE Stop: 08/30/20 23:59 Sodium Chloride (Saline Flush) 10 ml FLUSH ASDIRECTED PRN PRN Reason: Keep Vein Open Stop: 08/30/20 23:00 Discontinued Medications Dexmedetomidine HCl (Precedex) Confirm Administered Dose 200 mcg .ROUTE .STK-MED ONE Stop: 08/30/20 08:03 Fentanyl (Sublimaze) Confirm Administered Dose 100 mcg .ROUTE .STK-MED ONE Stop: 08/30/20 08:47 Lidocaine/Epinephrine (Xylocaine-Mpf 2%-Epi 1:200,000) Confirm Administered Dose 20 ml .ROUTE .STK-MED ONE Stop: 08/30/20 08:32 Midazolam HCl (Versed 1 Mg/Ml) Confirm Administered Dose 2 mg .ROUTE .STK-MED ONE Stop: 08/30/20 08:47 Miscellaneous Medication (Phenylephrine 1 Mg/10 Ml-Ns) Confirm Administered Dose 1 mg .ROUTE .STK-MED ONE Stop: 08/30/20 08:40 Propofol (Diprivan 20 Ml) Confirm Administered Dose 200 mg .ROUTE .STK-MED ONE Stop: 08/30/20 09:28 Ropivacaine (Naropin 0.5%) Confirm Administered Dose 30 ml .ROUTE .STK-MED ONE Stop: 08/30/20 08:02
--- NOTE | 2020-08-30 10:55 | PCM.PRNOTE ---
- Free Text/Narrative Note: Postoperative regional pain control requested by surgeon. Pre-op Dx: Right shoulder osteoarthritis Surgical procedure: Right Reverse shoulder arthroplasty Procedure: Rt Interscalene block with U/S guidance Requesting physician: Dr. Geronimo Anand Risks and benefits discussed with the patient preoperatively including infection, bleeding, incomplete or failed block, possible nerve damage, local anesthetic toxicity. Chart reviewed, VS stable. Permit signed. Patient in preoperative area of PACU , alert and awake. Time out performed at 10:27. Oxygen 3L via NC. Right side of the neck was prepped with Chloraprep x 1 and allowed to dry. Midazolam IV 2 mg given. Under aseptic technique, the brachial plexus was identified under ultrasound prior to needle insertion. Local infiltration with 2mls of 1% Lidocaine. 2" Stimuplex needle #22 G was inserted under US guidance. Neuromuscular response of biceps contraction and forearm twitching elicited at 0.6 mA. Under direct visualization of needle tip the injection of 0.5% Ropivacaine with 1:200k epinephrine (16 mls) mixed with 2% PF Lidocaine with 1:200k epinephrine (7mls) with added 6 mg of Dexamethasone and 30 mcg of Dexmedetomidine, total of 25 mls in divided doses, maintaining negative aspiration was completed without problems. No local anesthetic toxicity was noted. Patient is awake, stable and tolerated the procedure well. Please see the attached U/S images Time: 10:27 - 10:33
[2020-08-30] MEDS ORDERED: Propofol 200 MG/20 ML SDV ONE ×2 (11:14→12:09)
[2020-08-30] MEDS ORDERED: ceFAZolin 1 GM Vial ONE (11:30)
[2020-08-30] MEDS ORDERED: Ondansetron 4 MG/2 ML SDV ONE (11:36)
[2020-08-30] MEDS ORDERED: Lactated Ringers 1,000 ML ONE (12:03)
--- NOTE | 2020-08-30 12:42 | CR ---
Right shoulder: 3 views of the right shoulder obtained utilizing C-arm device. Comparison: No prior right shoulder studies are available. Study shows placement of a reverse right shoulder prosthesis. Components are aligned. No discrete underlying bony abnormality is otherwise seen. Fluoroscopy time is given as 3.8 seconds. Impression: 1. Procedural study as described above. Diagnostic code #2
--- NOTE | 2020-08-30 13:13 | PCM48HPAN ---
Post Anesthesia Note - EVALUATION WITHIN 48HRS OF ANESTHETIC Vital Signs in Normal Range: Yes Patient Participated in Evaluation: Yes Respiratory Function Stable: Yes Airway Patent: Yes Cardiovascular Function Stable: Yes Hydration Status Stable: Yes Pain Control Satisfactory: Yes Nausea and Vomiting Control Satisfactory: Yes Mental Status Recovered: Yes Vital Signs: Last Vital Signs Temp 97.0 F 08/30/20 13:05 Pulse 71 08/30/20 13:05 Resp 16 08/30/20 13:05 BP 119/66 08/30/20 13:05 Pulse Ox 96 08/30/20 13:05
--- NOTE | 2020-08-30 14:02 | CR ---
Right shoulder: AP view of the right shoulder was obtained utilizing portable technique. Reverse right shoulder prosthesis is seen. Components are aligned. There are electrostimulating wires being seen within the thoracic spine. No acute osseous abnormality is appreciated. Impression: 1. Satisfactory alignment of right shoulder prosthesis. 2. Nothing acute is otherwise seen. Diagnostic code #2
--- NOTE | 2020-09-10 17:44 | PCM.OPNOTE ---
- General Post-Op/Procedure Note Date of Surgery/Procedure: 08/30/20 Operative Procedure(s): right reverse total shoulder arthroplasty Pre Op Diagnosis: right shoulder rotator cuff tear arthopathy Post-Op Diagnosis: Same Anesthesia Technique: General ET Tube, Regional Block Primary Surgeon: Geronimo Grove Anesthesia Provider: Gurmeet Sky Cook Specialty: Lakisha Miles Cook Specialty: Yumiko Ventura EBL in mLs: 150 Complications: None Condition: Good Free Text/Narrative:: 13 stem 32+6 glenosphere 28 baseplate 4mm poly
--- NOTE | 2020-09-10 18:21 | OR ---
DATE OF OPERATION: 08/30/2020 SURGEON: Geronimo Grove MD OPERATION PERFORMED: Right reverse total shoulder arthroplasty. PREOPERATIVE DIAGNOSIS: Right shoulder rotator cuff tear arthropathy. POSTOPERATIVE DIAGNOSIS: Right shoulder rotator cuff tear arthropathy. ANESTHESIA: General endotracheal intubation with regional interscalene block. ANESTHESIA PROVIDER: Chaya Lema. ASSISTANTS: Lakisha Miles PA-C; and Yumkio Ventura LPN. ESTIMATED BLOOD LOSS: 150 mL. COMPLICATIONS: None. CONDITION: Stable. IMPLANTS: 1. Shubert size 13, 135-degree reverse humeral stem. 2. Radha size 32, +6 glenosphere. 3. Shubert size 28 mm concentric baseplate. 4. Radha size 4 mm polyethylene insert. DESCRIPTION OF PROCEDURE: The patient was identified in the preoperative holding area. Proper site was marked and identified by the surgeon. The patient was taken back to the operating theater where after adequate anesthesia, the patient was placed supine on the radiolucent table. The patient was placed in a reverse Trendelenburg position. Right shoulder was then sterilely prepped and draped in the usual sterile fashion. OR time-out was performed. The patient received 2 g of IV Ancef. Standard deltopectoral incision was made. This was taken down to the cephalic vein. Cephalic vein was then retracted laterally with the deltoid. Conjoined tendon was identified. Clavipectoral fascia was incised. Conjoined tendon was retracted medially. Anterior humeral circumflex vessels were ligated. Once this was done, the biceps tendon was identified. Opening of the bicipital groove was done. A #2 FiberWire was used for pectoralis tenodesis of the biceps tendon. Proximal to this, it was then resected all the way back to the level of the glenoid. Peel down of the subscapularis tendon was then done. Humeral head was then dislocated. A humeral head cut was then completed and found to be adequate. Anterior and posterior glenoid retractors were then placed. Circumferential removal of the labrum as well as a partial capsulectomy was then performed at this time. A guide pin was then placed in a center-center position with roughly 10 degrees inferior tilt. The 28 mm concentric reamer was then utilized until there was a positive smile sign with good bony bleeding bed. The guide pin was then removed and a 28 mm baseplate was then placed with a central compression screw and was found to have adequate fixation. An inferior and superior locking screw were then placed and found to have adequate purchase. The 32, +6 glenosphere was impacted in place and attention was turned to the humerus. Starting with the canal awls, I was able to use a reamer up to a size 13. Broaches were then used up to a size 13 and was found to be rotationally and vertically stable. Calcar planer was then utilized. Trial implants with +4 liner were then placed. The patient's shoulder was then reduced with the trial implants. C-arm fluoroscopy showed all components to be well aligned. There were no signs of instability. The patient had full range of motion with good tension, but no over-tensioning of the conjoined tendon and deltoid. The trial implants were then removed. The size 13, 135-degree humeral stem with +4 polyethylene were constructed on the back table and then impacted onto the humerus. The shoulder then was relocated. C-arm fluoroscopy was again utilized showing no fractures and well aligned parts. 400 mL of IrriSept irrigation was irrigated through the shoulder along with 1 L pulse lavage irrigation with Ancef. Topical tranexamic acid and vancomycin powder were applied. A 2-0 Vicryl was used subcutaneously, and Prineo was used for closure of the skin. The patient tolerated the procedure well and was sent to PACU in stable condition in a shoulder immobilizer. ISABELLA /[id number]
== END 2020-08-30 15:59 | disposition home or self-care (01) ==
LOC: JD.SDS 09:36
PROVIDERS: ATTEND Orthopaedic Surgery
DX: M19.011 Primary osteoarthritis, right shoulder (principal); M75.101 Unspecified rotator cuff tear or rupture of right shoulder, not specified as traumatic; I10 Essential (primary) hypertension; Z88.8 Allergy status to other drugs, medicaments and biological substances; Z79.899 Other long term (current) drug therapy; Z87.891 Personal history of nicotine dependence; Z91.048 Other nonmedicinal substance allergy status; Z98.890 Other specified postprocedural states
CPT/HCPCS: 23472; 73020; 76000; 87641; 97161; 97165; C1713; C1769; C1776; J0690; J2250; J2405; J2704; J2795; J3010; J3370; J7120; 01638; 64415; J2370